=== PATIENT | male | born 1955 | race Caucasian/White ===

== ENCOUNTER → 2020-10-12 | Outpatient (CLI) | payer OTHER ==
[~2020-10-12] MED LIST: INSU100V13 SQ; LOSA1TAB19 PO; METF500T16 PO; PRAV20TA2 PO; SITA100T PO
--- NOTE | 2020-10-12 11:51 | KCIC ---
Ultrasound of the right thigh without comparison for right thigh hematoma. TECHNIQUE AND FINDINGS: Real-time grayscale and color Doppler evaluation of the area of interest in the right thigh is performed. There is a 16.2 x 12.6 x 7.2 cm lobulated heterogeneous complex fluid collection throughout subcutaneous tissues in this region. No internal vascular flow. IMPRESSION: 1. 16.2 cm complex appearing heterogeneous lobulated fluid collection within the subcutaneous tissues. Primary differential diagnostic considerations include hematoma versus abscess. Electronically signed by: Freddy Morrow MD (10/12/2020 11:47 AM) [id number]
== END ==
LOC: KCIC US 08:37
PROVIDERS: ATTEND Family Medicine
DX: S70.11XA Contusion of right thigh, initial encounter (principal); X58.XXXA Exposure to other specified factors, initial encounter; Y93.89 Activity, other specified; Y92.89 Other specified places as the place of occurrence of the external cause; Y99.8 Other external cause status
CPT/HCPCS: 76881

== ENCOUNTER → 2022-02-13 | Outpatient (CLI) | payer OTHER ==
--- NOTE | 2022-02-13 13:23 | KCIC ---
EXAM: Left foot, 3 views. HISTORY: Second toe ulcer. COMPARISON: None. FINDINGS: 3 views left foot are obtained. There is widening of the second distal interphalangeal join t with small surrounding bone fragments and soft tissue swelling. There is lucency along the plantar base of the second distal phalanx likely due to destructive/erosive changes. There is first tarsal me tatarsal joint space narrowing, spurring and subchondral cyst formation. There is a moderate plantar spur. There is a large enthesophyte at the Achilles tendon insertion. There is dorsal forefoot soft t issue swelling. IMPRESSION: 1. Suspected osteomyelitis involving the second distal phalanx with associated second distal interpha langeal joint space widening likely due to septic arthritis. There are small surrounding bone fragmen ts and there is soft tissue swelling. 2. Moderate to severe first tarsometatarsal joint osteoarthritis, moderate plantar spur and large ent hesophyte at the Achilles tendon insertion. Electronically signed by: Romy Tomas MD (02/13/2022 1:20 PM) [id number]
== END ==
LOC: KCIC 11:13
PROVIDERS: ATTEND Family Medicine
DX: M19.072 Primary osteoarthritis, left ankle and foot (principal); M79.89 Other specified soft tissue disorders; M77.32 Calcaneal spur, left foot; M76.62 Achilles tendinitis, left leg; L97.522 Non-pressure chronic ulcer of other part of left foot with fat layer exposed
CPT/HCPCS: 73630

== ENCOUNTER 2022-02-19 12:13 | Inpatient (IN) | payer OTHER ==
[~2022-02-19] VITALS: Ht 175.3 cm; Wt 134.7 kg
[~2022-02-19 12:13] MED LIST changes: -EMPA1TAB PO
[2022-02-19 13:10] VITALS: BP 129/71
[2022-02-19] MEDS ORDERED: EMPA1TAB PO (13:36)
--- NOTE | 2022-02-19 14:08 | PDOC1 ---
History and Physical Date of Admission Date of Admission DATE: 02/19/22 TIME: 14:07 Identification/Chief Complaint Chief Complaint Left 2nd toe wound Source Source: Patient History of Present Illness History of Present Illness Mr Figueroa is a 66yo male with PMHx HTN, HLD, DM2 who comes to the hospital as a direct admission from podiatry clinic for failure of outpatient treatment of left leg/foot and 2nd toe cellulitis. He noted left second toe pain swelling and redness with some yellowish discharge and ulcer went to his primary care physician on 02/11/2022 and was started on cefuroxime. He had referral to podiatry and after being seen in the office noted ulcer with osteomyelitis on radiograph and failure to improve despite outpatient antibiotics. Seen bedside does have foul-smelling discharge from left second toe. Cultures were obtained in podiatry office. Given osteomyelitis findings he is being considered for amputation. Prior to admission his diabetes outpatient has been controlled well and his A1c improved from 7.3-7.2 this most recent visit in January 2022. 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 Past Medical History Cardiovascular: HTN, Hyperlipidemia Endocrine: Diabetes Past Surgical History Past Surgical History: Arthroscopy (Left knee 1971), Hernia Repair (1977) Family History Family History: Cancer (Prostate in father), High Cholestrol, Hypertension Social History Smoke: No ALCOHOL: heavy (10-20 drinks per week) Current Medications Current Medications Active Scripts Active Reported Glyxambi 25 mg-5 mg Tablet (Empagliflozin/Linagliptin) 1 Each Tablet 1 Each PO DAILY Pravastatin Sodium 20 Mg Tablet 20 Mg PO DAILY Losartan-Hctz 50-12.5 Mg Tab (Losartan/Hydrochlorothiazide) 1 Each Tablet 1 Tab PO BID Metformin Hcl 500 Mg Tablet 500 Mg PO BIDWMEALS Levemir (Insulin Detemir) 100 Unit/1 Ml Vial 1 SQ DAILY Allergies Allergies: Coded Allergies: No Known Drug Allergies (Unverified , 05/14/16) ROS General: YES: Fatigue, Malaise; No: Chills, Night Sweats, Appetite, Other PSYCHOLOGICAL ROS: No: Anxiety, Behavioral Disorder, Concentration difficultie, Decreased libido, Depression, Disorientation, Hallucinations, Hostility, Irritablity, Memory difficulties, Mood Swings, Obsessive thoughts, Physical abuse, Sexual abuse, Sleep disturbances, Suicidal ideation, Other Eyes: No Blurry vision, No Decreased vision, No Double vision, No Dry eyes, No Excessive tearing, No Eye Pain, No Itchy Eyes, No Loss of vision, No Photophobia, No Scotomata, No Uses contacts, No Uses glasses, No Other HEENT: No: Heacaches, Visual Changes, Hearing change, Nasal congestion, Nasal discharge, Oral lesions, Sinus pain, Sore Throat, Epistaxis, Sneezing, Snoring, Tinnitus, Vertigo, Vocal changes, Other ALLERGY AND IMMUNOLOGY: No: Hives, Insect Bite Sensitivity, Itchy/Watery Eyes, Nasal Congestion, Post Nasal Drip, Seasonal Allergies, Other Hematological and Lymphatic: No: Bleeding Problems, Blood Clots, Blood Transfusions, Brusing, Night Sweats, Pallor, Swollen Lymph Nodes, Other ENDOCRINE: No: Breast Changes, Galactorrhea, Hair Pattern Changes, Hot Flashes, Malaise/lethargy, Mood Swings, Palpitations, Polydipsia/polyuria, Skin Changes, Temperature Intolerance, Unexpected Weight Changes, Other Breast: No New/Changing Breast Lumps, No Nipple changes, No Nipple discharge, No Other Respiratory: No: Cough, Hemoptysis, Orthopnea, Pleuritic Pain, Shortness of breath, SOB with excertion, Sputum Changes, Stridor, Tachypnea, Wheezing, Other Cardiovascular: No Chest Pain, No Palpitations, No Orthopnea, No Paroxysmal Noc. Dyspnea, No Edema, No Lt Headedness, No Other Gastrointestinal: No Nausea, No Vomiting, No Abdominal Pain, No Diarrhea, No Constipation, No Melena, No Hematochezia, No Other Genitourinary: No Dysuria, No Frequency, No Incontinence, No Hematuria, No Retention, No Discharge, No Urgency, No Pain, No Flank Pain, No Other, No , No , No , No , No , No , No Musculoskeletal: No Gait Disturbance, No Joint Pain, No Joint Stiffness, No Joint Swelling, No Muscle Pain, No Muscular Weakness, No Pain In:, No Swelling In:, No Other Neurological: Yes Gait Disturbance; No Behavorial Changes, No Bowel/Bladder ControlChng, No Confusion, No Dizziness, No Headaches, No Impaired Coord/balance, No Memory Loss, No Numbness/Tingling, No Seizures, No Speech Problems, No Tremors, No Visual Changes, No Weakness, No Other Skin: Yes Skin Lesion Changes; No Dry Skin, No Eczema, No Hair Changes, No Lumps, No Mole Changes, No Mottling, No Nail Changes, No Pruritus, No Rash, No Other, No Acne Physical Exam General: Alert, Oriented X3, Cooperative, No acute distress HEENT: Atraumatic, PERRLA, EOMI, Mucous membr. moist/pink Lungs: Clear to auscultation, Normal air movement Heart: S1S2, RRR, no thrills, no rubs, no gallops, no murmurs Abdomen: Normal bowel sounds, Soft, No tenderness, No hepatosplenomegaly, No masses Rectal Exam: not examined Extremities: No clubbing, No cyanosis, Normal pulses, Other (left 2nd toe large, red, hot, plantar ulcer) Skin: Other (Ulcer on 2nd toe left foot) Neuro: Normal gait, Normal speech, Strength at 5/5 X4 ext, Normal tone, Sensation intact, Cranial nerves 3-12 NL, Reflexes 2+ Psych/Mental Status: Mental status NL, Mood NL Vitals Vitals Vital Signs Date Time Temp Pulse Resp B/P (MAP) Pulse Ox O2 Delivery O2 Flow Rate FiO2 02/19/22 13:50 Room Air 02/19/22 13:10 98.3 90 18 129/71 (90) 93 98.3 Images Images Left xray: FINDINGS: 3 views left foot are obtained. There is widening of the second distal interphalangeal joint with small surrounding bone fragments and soft tissue swelling. There is lucency along the plantar base of the second distal phalanx likely due to destructive/erosive changes. There is first tarsal metatarsal joint space narrowing, spurring and subchondral cyst formation. There is a moderate plantar spur. There is a large enthesophyte at the Achilles tendon insertion. There is dorsal forefoot soft tissue swelling. IMPRESSION: 1. Suspected osteomyelitis involving the second distal phalanx with associated second distal interphalangeal joint space widening likely due to septic arthritis. There are small surrounding bone fragments and there is soft tissue swelling. 2. Moderate to severe first tarsometatarsal joint osteoarthritis, moderate plantar spur and large enthesophyte at the Achilles tendon insertion. VTE Prophylaxis Ordered VTE Prophylaxis Devices: No VTE Pharmacological Prophylaxi: Yes Assessment/Plan Assessment/Plan A/P: Left 2nd toe cellulitis - failed outpatient antibiotic therapy. Will give vancomycin, zosyn x1, blood cultures, CMP, CBC, Sed rate, CRP. Consult ID and podiatry Left 2nd toe ulcer - with likely osteomyelitis on radiograph. Will obtain vascular studies HTN - monitor BP, hold HCTZ pending labs HLD - statin DM2 - hold metformin, sliding scale and basal insulin while inpatient FEN - ADA diet, NPO after midnight PPX - ambulatory, post-op lovenox FULL CODE Dispo - inpatient for above Justifications for Admission Other Justification SYED DIETZ MD Feb 19, 2022 14:08
[2022-02-19] MEDS ORDERED: VANCOMYCIN PER PHARMACY MC PRN (14:15)
[2022-02-19] MEDS ORDERED: IV NORMAL SALINE 1000ML BAG 1,000 ML IV SCH (14:15)
[2022-02-19] MEDS ORDERED: IV DEXTROSE 5% 250 ML BAG. IV PRN (14:15)
[2022-02-19] MEDS ORDERED: ONDANSETRON PF 4 MG/2 ML VIAL. IVP PRN (14:15)
[2022-02-19] MEDS ORDERED: ACETAMINOPHEN 325 MG TABLET. PO PRN (14:15)
[2022-02-19] MEDS ORDERED: PIP/TAZO PER PHARMACY MC PRN (14:15)
[2022-02-19] MEDS ORDERED: hydrALAZINE 20 MG/ML VIAL. IVP PRN (14:15)
[2022-02-19] MEDS ORDERED: DEXTROSE 50% 25 GM / 50ML DISP.SYRIN. IV PRN (14:15)
[2022-02-19 15:00] VITALS: BP 130/64
[2022-02-19] MEDS ORDERED: VANCOMYCIN 2 GM in IV NORMAL SALINE 500ML BAG 500 ML IV ONE (15:00)
[2022-02-19] MEDS: PIPERACILLIN/TAZOBACTAM 3.375 GM in IV NORMAL SALINE 50ML 50 ML IV SCH ×2 (16:13→21:00)
[2022-02-19] MEDS: INSULIN LISPRO 300 UNITS/3 ML VIAL. SQ SCH (16:48)
[2022-02-19 17:02] LABS: ALBUMIN 3.2 g/dL (3.4-5.0); ALBUMIN/GLOBULIN RATIO 0.6 (1.0-1.7); C-REACTIVE PROTEIN 46.9 mg/L (0-3.3); CALCIUM 9.1 mg/dL (8.5-10.1); CREATININE 1.3 mg/dL (0.7-1.3); GFR 55.4; POTASSIUM 4.2 mmol/L (3.5-5.1); TOTAL BILIRUBIN 0.8 mg/dL (0.2-1.0); TOTAL PROTEIN 8.2 g/dL (6.4-8.2)
[2022-02-19 17:06] LABS: BASO % 1 % (0-3); EOS # 0.2 x10^3/uL (0.0-0.7); EOS % 3 % (0-3); HEMATOCRIT 37.2 % (39.0-53.0); HEMOGLOBIN 12.8 g/dL (13.0-17.5); LYMPH % 13 % (24-48); MEAN CORPUSCULAR HEMOGLOBIN 34 pg (25-35); MEAN CORPUSCULAR HGB CONC 34 g/dL (31-37); MEAN CORPUSCULAR VOLUME 98 fL (79-100); MONO # 0.5 x10^3/uL (0.0-1.1); MONO % 7 % (0-9); NEUT # 5.8 x10^3/uL (1.8-7.7); NEUT % 77 % (31-73); PLATELET COUNT 246 x10^3/uL (140-400); RED BLOOD COUNT 3.79 x10^6/uL (4.30-5.70); RED CELL DISTRIBUTION WIDTH 11.9 % (11.5-14.5); WHITE BLOOD COUNT 7.6 x10^3/uL (4.0-11.0)
--- NOTE | 2022-02-19 17:06 | RAD ---
US LEFT LOWER EXTREMITY ARTERIAL DUPLEX EVAL Indication: Reason: Osteomyelitis, decreased pulses, pain Comparison: None. Procedure: Real-time grayscale, color flow Doppler, and Doppler spectral waveform analysis of the art erial system of the lower extremity is performed. Findings: Left lower extremity: Triphasic waveforms throughout the left lower extremity. Mildly elevated veloci ty within the left common femoral artery measures 155 cm/s. Mild atheromatous plaque. No occlusion. IMPRESSION: 1. Mildly elevated velocity within the left common femoral artery, may indicate 30-49 percent stenos is. 2. Mild atheromatous plaque. Electronically signed by: Hussain Soliman DO (02/19/2022 5:04 PM) [id number]
--- NOTE | 2022-02-19 18:25 | NUR ---
Pharmacy Vancomycin Dosing Note S:Consulted to monitor and dose vancomycin started 02/19/22. O:FRANCOIS RICHARD is a 66 year old M with Osteomyelitis . Height: 5 feet, 9 inches Weight: 135.0 kg [place] Body Weight: 70.70 Adjusted Body Weight: 96.42 Dosing Weight: Actual Other Antibiotics: ZOSYN LABS: Last BUN: 24 Last Creatinine: 1.3 Creatinine Clearance: 77 mL/min Last WBC: 7.6 Last Procalcitonin: Tmax (past 24 hours): Microbiology: I/O: Drug Levels: Last level: on at Last dose given at Vancomycin Dosing: Loading Dose: 2000 mg x1 Dosing Weight: Actual Target Trough: 15-20 A: Based on: HT, WT AND RENAL FXN P: 1. Begin Vancomycin 2000 mg IV q18h 2. Follow up Trough level on 02/21/22 at 2230 3. Pharmacy will continue to monitor, follow and adjust therapy as needed. CHRISTY BARBOZA, [facility]MERLY [facility], 02/19/22 [id number]
[2022-02-19 19:40] VITALS: BP 128/58
[2022-02-19] MEDS: SENNOSIDES/DOCUSATE 8.6/50MG TABLET. PO SCH (21:00)
[2022-02-19] MEDS: ATORVASTATIN CALCIUM 10 MG TABLET. PO SCH (21:01)
[2022-02-19] MEDS: INSULIN GLARGINE SYRINGE. SQ SCH (21:08)
[2022-02-19 23:27] VITALS: BP 120/57
[2022-02-20] VITALS (12 sets, daily range): BP systolic 108–146; BP diastolic 54–75
[2022-02-20] MEDS: PIPERACILLIN/TAZOBACTAM 3.375 GM in IV NORMAL SALINE 50ML 50 ML IV SCH ×4 (00:27→16:35)
[2022-02-20] MEDS ORDERED: fentaNYL PF VIAL 100 MCG/2 ML VIAL IVP PRN ×2 (06:00)
[2022-02-20] MEDS ORDERED: MORPHINE SULFATE 2 MG/ML INJ. IVP PRN (06:00)
[2022-02-20] MEDS ORDERED: HYDROmorphone 2 MG/ML INJ. IVP PRN (06:00)
[2022-02-20] MEDS ORDERED: IV RINGERS,LACTATED 1000ML 1,000 ML IV SCH (06:00)
[2022-02-20] MEDS ORDERED: PROCHLORPERAZINE 10 MG/2 ML VIAL. IVP PRN (06:00)
[2022-02-20 06:28] LABS: CREATININE 1.2 mg/dL (0.7-1.3); GFR 60.8; POTASSIUM 4.1 mmol/L (3.5-5.1)
[2022-02-20] MEDS: INSULIN LISPRO 300 UNITS/3 ML VIAL. SQ SCH ×3 (07:10→16:41)
[2022-02-20] MEDS: SENNOSIDES/DOCUSATE 8.6/50MG TABLET. PO SCH ×2 (07:10→21:15)
[2022-02-20] MEDS ORDERED: DEXAMETHASONE SOD PHOS 4 MG/ML VIAL ONE (08:04)
[2022-02-20] MEDS ORDERED: LIDOCAINE 1% PF 5 ML VIAL. ONE (08:04)
[2022-02-20] MEDS ORDERED: PROPOFOL 10 MG/ML (20ML) VIAL. IV ONE (08:04)
[2022-02-20] MEDS ORDERED: ONDANSETRON PF 4 MG/2 ML VIAL. ONE (08:04)
[2022-02-20] MEDS ORDERED: fentaNYL PF VIAL 100 MCG/2 ML VIAL ONE (08:58)
[2022-02-20] MEDS: ASCORBIC ACID 500 MG TABLET PO SCH (09:22)
[2022-02-20] MEDS: MULTIVITAMIN with MINERAL TABLET. PO SCH (09:22)
[2022-02-20] MEDS ORDERED: FAMOTIDINE 20 MG/2 ML VIAL IVP ONE (09:30)
[2022-02-20] MEDS ORDERED: BUPIVACAINE MPF 0.25% 30 ML VIAL. ONE (09:34)
[2022-02-20] MEDS ORDERED: GLYCOPYRROLATE 1 MG/5 ML VIAL. ONE (09:57)
--- NOTE | 2022-02-20 10:14 | NUR ---
SW following. Discussed with RN, pt from home with family, room air, NPO, rapid COVID-19 negative. ID, Vascular and wound care following. Pt having surgery this morning. RN advised no SW needs at this time. SW will continue to follow.
--- NOTE | 2022-02-20 10:21 | PDOC ---
[employer] PROGRESS NOTE Date of Service DOS: DATE: 02/20/22 TIME: 10:17 Chief Complaint Chief Complaint Assessment/Plan A/P: Left 2nd toe cellulitis - failed outpatient antibiotic therapy. Will give vancomycin, zosyn x1, blood cultures, CMP, CBC, Sed rate, CRP. Consult ID and podiatry Left 2nd toe ulcer - with likely osteomyelitis on radiograph. Will obtain vascular studies HTN - monitor BP, hold HCTZ pending labs HLD - statin DM2 - hold metformin, sliding scale and basal insulin while inpatient Peripheral vascular disease with duplex showing left [employer] increased velocities FEN - ADA diet, NPO after midnight PPX - ambulatory, post-op lovenox FULL CODE Dispo - inpatient for above History of Present Illness History of Present Illness 66yo male with PMHx HTN, HLD, DM2 who comes to the hospital as a direct admission from podiatry clinic for failure of outpatient treatment of left leg/foot and 2nd toe cellulitis. He noted left second toe pain swelling and redness with some yellowish discharge and ulcer went to his primary care physician on 02/11/2022 and was started on cefuroxime. He had referral to podiatry and after being seen in the office noted ulcer with osteomyelitis on radiograph and failure to improve despite outpatient antibiotics. Seen bedside does have foul-smelling discharge from left second toe. Cultures were obtained in podiatry office. Given osteomyelitis findings he is being considered for amputation. Prior to admission his diabetes outpatient has been controlled well and his A1c improved from 7.3-7.2 this most recent visit in January 2022. 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 02/20/2022 No acute events overnight. Patient seen examined bedside. On-call to the OR for surgery. Follow-up Vitals/I&O Vitals/I&O: Vital Signs Date Time Temp Pulse Resp B/P (MAP) Pulse Ox O2 Delivery O2 Flow Rate FiO2 02/20/22 09:15 97.2 70 17 137/67 98 Room Air 97.2 I & O 02/19/22 02/19/22 02/20/22 15:00 23:00 07:00 Intake Total 240 ml Balance 240 ml Physical Exam General: Alert, Oriented X3, Cooperative, No acute distress Abdomen: Normal bowel sounds, Soft, No tenderness, No hepatosplenomegaly, No masses Extremities: No clubbing, No cyanosis, Normal pulses, Other (left 2nd toe large, red, hot, plantar ulcer) Skin: Other (Ulcer on 2nd toe left foot) Labs Labs: Laboratory Tests Test 02/19/22 14:05 02/19/22 16:10 02/19/22 16:45 02/19/22 20:59 SARS-CoV-2 Antigen (Rapid) Negative (NEGATIVE) White Blood Count 7.6 x10^3/uL (4.0-11.0) Red Blood Count 3.79 x10^6/uL (4.30-5.70) Hemoglobin 12.8 g/dL (13.0-17.5) Hematocrit 37.2 % (39.0-53.0) Mean Corpuscular Volume 98 fL (79-100) Mean Corpuscular Hemoglobin 34 pg (25-35) Mean Corpuscular Hemoglobin Concent 34 g/dL (31-37) Red Cell Distribution Width 11.9 % (11.5-14.5) Platelet Count 246 x10^3/uL (140-400) Neutrophils (%) (Auto) 77 % (31-73) Lymphocytes (%) (Auto) 13 % (24-48) Monocytes (%) (Auto) 7 % (0-9) Eosinophils (%) (Auto) 3 % (0-3) Basophils (%) (Auto) 1 % (0-3) Neutrophils # (Auto) 5.8 x10^3/uL (1.8-7.7) Lymphocytes # (Auto) 1.0 x10^3/uL (1.0-4.8) Monocytes # (Auto) 0.5 x10^3/uL (0.0-1.1) Eosinophils # (Auto) 0.2 x10^3/uL (0.0-0.7) Basophils # (Auto) 0.0 x10^3/uL (0.0-0.2) Erythrocyte Sedimentation Rate 103 (0-15) Sodium Level 136 mmol/L (136-145) Potassium Level 4.2 mmol/L (3.5-5.1) Chloride Level 100 mmol/L (98-107) Carbon Dioxide Level 26 mmol/L (21-32) Anion Gap 10 (6-14) Blood Urea Nitrogen 24 mg/dL (8-26) Creatinine 1.3 mg/dL (0.7-1.3) Estimated GFR (Cockcroft-Gault) 55.4 BUN/Creatinine Ratio 18 (6-20) Glucose Level 172 mg/dL (70-99) Calcium Level 9.1 mg/dL (8.5-10.1) Total Bilirubin 0.8 mg/dL (0.2-1.0) Aspartate Amino Transf (AST/SGOT) 59 U/L (15-37) Alanine Aminotransferase (ALT/SGPT) 54 U/L (16-63) Alkaline Phosphatase 76 U/L (46-116) C-Reactive Protein, Quantitative 46.9 mg/L (0-3.3) Total Protein 8.2 g/dL (6.4-8.2) Albumin 3.2 g/dL (3.4-5.0) Albumin/Globulin Ratio 0.6 (1.0-1.7) Glucose (Fingerstick) 161 mg/dL (70-99) 142 mg/dL (70-99) Test 02/20/22 05:50 02/20/22 07:04 Sodium Level 137 mmol/L (136-145) Potassium Level 4.1 mmol/L (3.5-5.1) Chloride Level 102 mmol/L (98-107) Carbon Dioxide Level 27 mmol/L (21-32) Anion Gap 8 (6-14) Blood Urea Nitrogen 21 mg/dL (8-26) Creatinine 1.2 mg/dL (0.7-1.3) Estimated GFR (Cockcroft-Gault) 60.8 Glucose Level 128 mg/dL (70-99) Calcium Level 9.0 mg/dL (8.5-10.1) Glucose (Fingerstick) 141 mg/dL (70-99) Comment Review of Relevant I have reviewed the following items deisi (where applicable) has been applied. Medications: Current Medications Medications (Trade) Dose Ordered Sig/Gamal Route PRN Reason Start Time Stop Time Status Last Admin Dose Admin Atorvastatin Calcium (Lipitor) 5 mg QHS PO 02/19/22 21:00 02/19/22 21:01 Vancomycin HCl (Vanco Per Pharmacy) 1 each PRN DAILY PRN MC SEE COMMENTS 02/19/22 14:15 02/19/22 18:24 Vancomycin HCl 2 gm/Sodium Chloride 500 ml @ 250 mls/hr 1X ONCE IV 02/19/22 15:00 02/19/22 16:59 DC 02/19/22 17:26 Piperacillin Sod/ Tazobactam Sod 3.375 gm/Sodium Chloride 50 ml @ 100 mls/hr Q6HRS IV 02/19/22 14:30 02/20/22 06:01 Sodium Chloride 1,000 ml @ 100 mls/hr Q10H IV 02/19/22 14:15 02/20/22 00:14 DC 02/19/22 16:09 Senna/Docusate Sodium (Senna Plus) 1 tab BID PO 02/19/22 21:00 02/19/22 21:00 Ringer's Solution 1,000 ml @ 30 mls/hr Q24H IV 02/20/22 06:00 02/20/22 17:59 02/20/22 09:34 Insulin Glargine (Lantus Syringe) 25 unit QHS SQ 02/19/22 21:00 02/19/22 21:08 Famotidine (Pepcid Vial) 20 mg 1X ONCE IVP 02/20/22 09:30 02/20/22 09:31 DC 02/20/22 09:33 Justifications for Admission Other Justification Failure of outpatient antibiotics ADELIA MCLEOD MD Feb 20, 2022 10:21
--- NOTE | 2022-02-20 10:23 | PDOC4 ---
OPERATIVE NOTE Date: Date: Feb 20, 2022 Pre-Op Diagnosis: Type 2 diabetes, peripheral neuropathy, PAD Significant cellulitis to the second digit with underlying osteomyelitis possible forefoot deep tissue abscess Post-Op Diagnosis: Same as above Procedure Performed: Left second MTPJ disarticulation, forefoot exploration/I&D Surgeon: Nick Chauhan DPM Anesthesia Type: General Blood Loss: 5 cc Specimans Obtained: Left second toe for osteomyelitis rule out Deep tissue culture pre-and post- washout to the second MTPJ Findings: Significant purulence and osteolytic changes were noted at the DIPJ of the second digit. Although there was a significant cellulitic changes both at the lateral aspect of the hallux and medial aspect of the third digit and the dorsal second MTPJ, there is no significant sinus tracking, purulence, tendon tracking surrounding the second MTPJ. The skin flaps were perfused adequately. Complications: None Operative Note: Patient was brought into the operating room and placed on the operating table in a supine position. A timeout was performed to confirm patient's identity, location of surgery and procedure. After induction of general anesthesia, a pneumatic high ankle tourniquet was placed with pressure set 250 mmHg. The left lower extremity was then scrubbed, prepped and draped in the usual sterile manner. The left lower extremity was elevated for gravity exsanguination and the tourniquet was inflated to 250 mmHg. Then the attention was directed to the left second digit. A full-thickness, modified fishmouth incision was carried out to the level of the second MTPJ with a long dorsal arm to further explore the distal metatarsal shafts between the second and third. The incision was carried deep to the level of the periosteum. immediately, we noted purulent and osteolytic changes confined to the second digit. Proximal to the second MTPJ, there was no purulence, sinus tracking or tendon tracking to the Dorsal, plantar aspect of second MTPJ or to the lateral hallux compartment or medial third digit compartment. The erythematous changes at the hallux, third digit and proximal second metatarsal head were blanchable without any fluctuant changes. Deep tissue culture was collected at this time for anaerobes, aerobes and sensitivity. The second digit was resected out at the level of MTPJ. The gross specimen was sent for pathology for osteomyelitis rule out. The surgical site was irrigated with copious saline solution. Afterwards, wound site inspection was negative for purulence or necrotic tissue changes. The tissue appeared granular with healthy pinpoint bleeding. Then a repeat deep tissue culture was collected for anaerobes, aerobes and sensitivity. The surgical site was left open and packed loosely with Betadine soaked gauze both to the dorsal and plantar aspect of second MTPJ. Postoperative anesthesia consisted of 10 cc 0.25% Marcaine plain was infiltrated to the surgical site for pain control. The surgical foot was dressed with 4 x 4 gauze, soft roll and Jesse bandage with minimal compression. Patient tolerated procedure anesthesia well with vital signs stable and neurovascular status intact. Patient was then transferred to PACU for continued recovery. Pending surgical foot x-ray 3 view in PACU. Dispo: Leave the dressing clean, dry and intact. I will perform dressing change tomorrow in the afternoon. Continue with broad-spectrum IV antibiotics while waiting for the skin to demarcate. I did discuss with patient and family that if the skin envelope does not survive we may have to convert to a TMA for the second stage procedure. If the skin on the third and first digits normalize, I will consider limb salvage with either allograft or autograft skin coverage. Strict nonweightbearing to the surgical foot. NICK CHAUHAN DPM Feb 20, 2022 10:23
[2022-02-20] MEDS ORDERED: VANCOMYCIN 2 GM in IV NORMAL SALINE 500ML BAG 500 ML IV SCH (11:00)
--- NOTE | 2022-02-20 11:54 | RAD ---
XR FOOT_LEFT 3 VIEWS History: Reason: POST OP / Spl. Instructions: / History: Technique: 3 views left foot Comparison: February 13, 2022 Findings: Overlying structures degraded evaluation. Interval second digit amputation. There is adjacent soft ti ssue swelling. No acute fracture. Chronic fifth metatarsal fracture. Moderate midfoot DJD. Mild ankle DJD. Plantar calcaneal spur. Impression: 1. Interval second digit amputation. Electronically signed by: Hussain Soliman DO (02/20/2022 11:52 AM) [id number]
[2022-02-20] MEDS: DAPTOmycin (GENERIC) IVPB 560 MG in IV NORMAL SALINE 50ML 50 ML IV SCH (14:08)
[2022-02-20] MEDS: ATORVASTATIN CALCIUM 10 MG TABLET. PO SCH (21:15)
[2022-02-20] MEDS: LACTOBACILLUS RHAMNOSUS GG 1 CAPSULE. PO SCH (21:15)
[2022-02-20] MEDS: INSULIN GLARGINE SYRINGE. SQ SCH (21:22)
--- NOTE | 2022-02-20 21:33 | CONS ---
DATE OF CONSULTATION: 02/20/2022 REQUESTING PHYSICIAN: Dr. Chavez. REASON FOR CONSULTATION: Left second toe osteomyelitis and septic joint. HISTORY OF PRESENT ILLNESS: This is a 66-year-old gentleman with history of hypertension, obesity, who had developed callus onto the second toe that he noticed about 2 weeks or so ago. The patient had x-ray done, which showed osteomyelitis. The patient was seen by Dr. Uribe and partial amputation of the left second toe done today. The patient had mild erythema of the proximal part of the toe into the foot. Denies any fever. Denies any nausea, vomiting, diarrhea, chest pain, shortness of breath, abdominal pain, urinary symptoms or bowel symptoms. PAST MEDICAL HISTORY: Positive for hypertension, diabetes, obesity, hyperlipidemia, sleep apnea. SOCIAL HISTORY: Negative for smoking. Alcohol use, almost every day. No drug use. ALLERGIES: No known drug allergies. CURRENT MEDICATIONS: The patient is on vancomycin and Zosyn. REVIEW OF SYSTEMS: As in HPI. All other systems reviewed are negative. PHYSICAL EXAMINATION: GENERAL: Alert, oriented gentleman, not in distress. VITAL SIGNS: Stable, afebrile. HEENT: NAD. NECK: Supple, no JVP, no lymphadenopathy. LUNGS: Clear. HEART: S1, S2, regular. ABDOMEN: Soft, nontender, no organomegaly. EXTREMITIES: No edema or cyanosis. Post-surgical dressing on the left foot not opened. NEUROLOGIC: The patient is alert, awake, and appropriate. No focal neurologic deficit. LABORATORY DATA: White count is normal. Sed rate was 103. BUN and creatinine is normal. X-ray from few days earlier reviewed, shows osteomyelitis as well as distal interphalangeal joint infection. Ultrasound of lower extremity was not showing any significant arterial disease. IMPRESSION: 1. Left second toe distal phalanx osteomyelitis. 2. Left second toe distal interphalangeal joint infection. 3. Diabetes. 4. Hypertension. 5. Hyperlipidemia. RECOMMENDATIONS: Would continue Zosyn, change vancomycin to daptomycin, supportive care and we will continue to follow. Thank you very much, Dr. Chavez, for giving me opportunity to participate in this patient's care. MARY ELLEN/DEMETRIA EDWARDS: Daniel TID: [id number]
[2022-02-21 03:32] VITALS: BP 124/66
[2022-02-21 05:41] LABS: CALCIUM 8.7 mg/dL (8.5-10.1); CREATININE 1.2 mg/dL (0.7-1.3); GFR 60.8; POTASSIUM 4.2 mmol/L (3.5-5.1)
[2022-02-21] MEDS: PIPERACILLIN/TAZOBACTAM 3.375 GM in IV NORMAL SALINE 50ML 50 ML IV SCH ×4 (05:58→17:49)
[2022-02-21 07:00] VITALS: BP 120/52
[2022-02-21] MEDS: INSULIN LISPRO 300 UNITS/3 ML VIAL. SQ SCH ×3 (08:00→17:00)
[2022-02-21] MEDS: MULTIVITAMIN with MINERAL TABLET. PO SCH (09:59)
[2022-02-21] MEDS: ASCORBIC ACID 500 MG TABLET PO SCH (09:59)
[2022-02-21] MEDS: SENNOSIDES/DOCUSATE 8.6/50MG TABLET. PO SCH ×2 (09:59→20:19)
[2022-02-21] MEDS: LACTOBACILLUS RHAMNOSUS GG 1 CAPSULE. PO SCH ×2 (09:59→20:19)
--- NOTE | 2022-02-21 10:38 | PDOC ---
[employer] PROGRESS NOTE Date of Service DOS: DATE: 02/21/22 TIME: 10:36 Chief Complaint Chief Complaint Assessment/Plan A/P: Left 2nd toe cellulitis - failed outpatient antibiotic therapy. 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 Will obtain vascular studies HTN - monitor BP, hold HCTZ pending labs HLD - statin DM2 - hold metformin, sliding scale and basal insulin while inpatient Peripheral vascular disease with duplex showing left [employer] increased velocities FEN - ADA diet, NPO after midnight PPX - ambulatory, post-op lovenox FULL CODE Dispo - inpatient for above History of Present Illness History of Present Illness 66yo male with PMHx HTN, HLD, DM2 who comes to the hospital as a direct admission from podiatry clinic for failure of outpatient treatment of left leg/foot and 2nd toe cellulitis. He noted left second toe pain swelling and redness with some yellowish discharge and ulcer went to his primary care physician on 02/11/2022 and was started on cefuroxime. He had referral to podiatry and after being seen in the office noted ulcer with osteomyelitis on radiograph and failure to improve despite outpatient antibiotics. Seen bedside does have foul-smelling discharge from left second toe. Cultures were obtained in podiatry office. Given osteomyelitis findings he is being considered for amputation. Prior to admission his diabetes outpatient has been controlled well and his A1c improved from 7.3-7.2 this most recent visit in January 2022. 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 02/20/2022 No acute events overnight. Patient seen examined bedside. On-call to the OR for surgery. Follow-up 02/21/2022 No acute events overnight. Patient seen examined bedside. AF and VSS. Pain is well controlled. Dr. Uribe will be back again this afternoon to reevaluate surgical wound to see if second trip to the OR if needed. Patient's chart, labs, images were reviewed and discussed with RN Vitals/I&O Vitals/I&O: Vital Signs Date Time Temp Pulse Resp B/P (MAP) Pulse Ox O2 Delivery O2 Flow Rate FiO2 02/21/22 07:00 65 18 120/52 (74) 97 Room Air 02/21/22 03:32 97.8 97.8 02/20/22 10:31 10.0 I & O 02/20/22 02/20/22 02/21/22 15:00 23:00 07:00 Intake Total 850 ml 120 ml 600 ml Output Total 10 ml Balance 840 ml 120 ml 600 ml Physical Exam General: Alert, Oriented X3, Cooperative, No acute distress Abdomen: Normal bowel sounds, Soft, No tenderness, No hepatosplenomegaly, No masses Extremities: No clubbing, No cyanosis, Normal pulses, Other (left 2nd toe large, red, hot, plantar ulcer) Skin: Other (Ulcer on 2nd toe left foot) Labs Labs: Laboratory Tests Test 02/20/22 10:39 02/20/22 16:14 02/20/22 20:41 02/21/22 04:50 Glucose (Fingerstick) 143 mg/dL (70-99) 202 mg/dL (70-99) 196 mg/dL (70-99) Sodium Level 137 mmol/L (136-145) Potassium Level 4.2 mmol/L (3.5-5.1) Chloride Level 101 mmol/L (98-107) Carbon Dioxide Level 24 mmol/L (21-32) Anion Gap 12 (6-14) Blood Urea Nitrogen 20 mg/dL (8-26) Creatinine 1.2 mg/dL (0.7-1.3) Estimated GFR (Cockcroft-Gault) 60.8 Glucose Level 126 mg/dL (70-99) Calcium Level 8.7 mg/dL (8.5-10.1) Creatine Kinase 50 U/L (39-308) Test 02/21/22 06:57 Glucose (Fingerstick) 120 mg/dL (70-99) Comment Review of Relevant I have reviewed the following items deisi (where applicable) has been applied. Medications: Current Medications Medications (Trade) Dose Ordered Sig/Gamal Route PRN Reason Start Time Stop Time Status Last Admin Dose Admin Vancomycin HCl 2 gm/Sodium Chloride 500 ml @ 250 mls/hr Q18H IV 02/20/22 11:00 02/20/22 12:42 DC 02/20/22 10:47 Daptomycin 560 mg/ Sodium Chloride 50 ml @ 100 mls/hr Q24H IV 02/20/22 14:00 02/20/22 14:08 Lactobacillus Rhamnosus (Culturelle) 1 cap BID PO 02/20/22 21:00 02/21/22 09:59 Justifications for Admission Other Justification Failure of outpatient antibiotics ADELIA MCLEOD MD Feb 21, 2022 10:38
[2022-02-21 11:00] VITALS: BP 133/59
--- NOTE | 2022-02-21 13:07 | PDOC ---
Infectious Disease Note Subjective Subjective pt is feeling good ROS ROS no n/v/d/sob Vital Sign Vital Signs Vital Signs Date Time Temp Pulse Resp B/P (MAP) Pulse Ox O2 Delivery O2 Flow Rate FiO2 02/21/22 11:00 97.9 68 18 133/59 (83) 96 Room Air 97.9 02/20/22 10:31 10.0 Physical Exam PHYSICAL EXAM GENERAL: Alert, oriented gentleman, not in distress. VITAL SIGNS: Stable, afebrile. HEENT: NAD. NECK: Supple, no JVP, no lymphadenopathy. LUNGS: Clear. HEART: S1, S2, regular. ABDOMEN: Soft, nontender, no organomegaly. EXTREMITIES: No edema or cyanosis. Post-surgical dressing on the left foot not opened. NEUROLOGIC: The patient is alert, awake, and appropriate. No focal neurologic deficit. Labs Lab Laboratory Tests Test 02/20/22 16:14 02/20/22 20:41 02/21/22 04:50 02/21/22 06:57 Glucose (Fingerstick) 202 mg/dL (70-99) 196 mg/dL (70-99) 120 mg/dL (70-99) Sodium Level 137 mmol/L (136-145) Potassium Level 4.2 mmol/L (3.5-5.1) Chloride Level 101 mmol/L (98-107) Carbon Dioxide Level 24 mmol/L (21-32) Anion Gap 12 (6-14) Blood Urea Nitrogen 20 mg/dL (8-26) Creatinine 1.2 mg/dL (0.7-1.3) Estimated GFR (Cockcroft-Gault) 60.8 Glucose Level 126 mg/dL (70-99) Calcium Level 8.7 mg/dL (8.5-10.1) Creatine Kinase 50 U/L (39-308) Test 02/21/22 11:31 Glucose (Fingerstick) 150 mg/dL (70-99) Micro Microbiology 02/19/22 Blood Culture - Preliminary, Resulted NO GROWTH AFTER 1 DAY Objective Assessment IMPRESSION: 1. Left second toe distal phalanx osteomyelitis. s/p partial amputation 2. Left second toe distal interphalangeal joint infection. 3. Diabetes. 4. Hypertension. 5. Hyperlipidemia. Plan Plan of Care cont antibiotics cont supportive care XOCHITL CABALLERO MD Feb 21, 2022 13:07
[2022-02-21 15:03] VITALS: BP 126/60
[2022-02-21] MEDS: DAPTOmycin (GENERIC) IVPB 560 MG in IV NORMAL SALINE 50ML 50 ML IV SCH (15:19)
--- NOTE | 2022-02-21 17:48 | PDOC2 ---
CONSULT Date of Consult Date of Consult DATE: 02/21/22 TIME: 17:37 Reason for Consult Reason for Consult: Left second digit diabetic ulcer, osteomyelitis Identification/Chief Complaint Chief Complaint Red, swollen left second digit Source Source: Patient History of Present Illness Reason for Visit: Patient with a history of diabetes, peripheral neuropathy, peripheral arterial disease, s/p [DOS 02/20] left second MTPJ disarticulation, forefoot incision and drainage in the setting of left second diabetic foot ulcer, underlying osteomyelitis. At bedside, patient denies pain and has been minimally heel touchdown weightbearing to left lower extremity. He denies any constitutional symptoms. He is currently on daptomycin and Zosyn for empiric antibiotic therapy. The surgical foot dressing has been kept clean, dry and intact. Outpatient left second digit swab culture [02/19] grew MRSA, streptococci, Prevotella, Trueperella. Blood culture has been negative. Labs were insignificant for leukocytosis. Past Medical History Cardiovascular: HTN, Hyperlipidemia Endocrine: Diabetes Past Surgical History Past Surgical History: Arthroscopy (Left knee 1971), Hernia Repair (1977) Family History Family History: Cancer (Prostate in father), High Cholestrol, Hypertension Social History No ALCOHOL: heavy (10-20 drinks per week) Current Medications Current Medications Current Medications Acetaminophen (Tylenol) 650 mg PRN Q6HRS PRN PO MILD PAIN / TEMP > 100.3'F; Start 02/19/22 at 14:15 Ondansetron HCl (Zofran) 4 mg PRN Q4HRS PRN IVP NAUSEA/VOMITING; Start 02/19/22 at 14:15 Hydralazine HCl (Apresoline Inj) 10 mg PRN Q4HRS PRN IVP ELEVATED BP, SEE COMMENTS; Start 02/19/22 at 14:15 Atorvastatin Calcium (Lipitor) 5 mg QHS PO Last administered on 02/20/22at 21: 15; Start 02/19/22 at 21:00 Insulin Human Lispro (HumaLOG) 0-9 UNITS TIDWMEALS SQ Last administered on 02/20/22at 16:41; Start 02/19/22 at 17:00 Dextrose (Dextrose 50%-Water Syringe) 12.5 gm PRN Q15MIN PRN IV SEE COMMENTS; Start 02/19/22 at 14:15 Dextrose (Iv Dextrose 5%) 250 ml PRN Q15MIN PRN IV SEE COMMENTS; Start 02/19/22 at 14:15 Vancomycin HCl (Vanco Per Pharmacy) 1 each PRN DAILY PRN MC SEE COMMENTS Last administered on 02/19/22at 18:24; Start 02/19/22 at 14:15; Stop 02/20/22 at 16:13; Status DC Vancomycin HCl 2 gm/Sodium Chloride 500 ml @ 250 mls/hr 1X ONCE IV Last administered on 02/19/22at 17:26; Start 02/19/22 at 15:00; Stop 02/19/22 at 16:59; Status DC Piperacillin Sod/ Tazobactam Sod 3.375 gm/Sodium Chloride 50 ml @ 100 mls/hr Q6HRS IV Last administered on 02/21/22at 11:36; Start 02/19/22 at 14:30 Piperacillin Sod/ Tazobactam Sod (Zosyn Per Pharmacy) 1 each PRN DAILY PRN MC SEE COMMENTS; Start 02/19/22 at 14:15 Sodium Chloride 1,000 ml @ 100 mls/hr Q10H IV Last administered on 02/19/22at 16:09; Start 02/19/22 at 14:15; Stop 02/20/22 at 00:14; Status DC Senna/Docusate Sodium (Senna Plus) 1 tab BID PO Last administered on 02/21/22at 09:59; Start 02/19/22 at 21:00 Fentanyl Citrate (Fentanyl 2ml Vial) 25 mcg PRN Q5MIN PRN IVP MILD PAIN 1-3; Start 02/20/22 at 06:00; Stop 02/20/22 at 16:09; Status DC Fentanyl Citrate (Fentanyl 2ml Vial) 50 mcg PRN Q5MIN PRN IVP MODERATE PAIN 4- 6; Start 02/20/22 at 06:00; Stop 02/20/22 at 16:09; Status DC Morphine Sulfate (Morphine Sulfate) 1 mg PRN Q10MIN PRN IVP SEVERE PAIN 7-10; Start 02/20/22 at 06:00; Stop 02/20/22 at 16:12; Status DC Ringer's Solution 1,000 ml @ 30 mls/hr Q24H IV Last administered on 02/20/22at 09:34; Start 02/20/22 at 06:00; Stop 02/20/22 at 17:59; Status DC Hydromorphone HCl (Dilaudid) 0.5 mg PRN Q10MIN PRN IVP SEVERE PAIN 7-10, 2nd CHOICE; Start 02/20/22 at 06:00; Stop 02/20/22 at 16:12; Status DC Prochlorperazine Edisylate (Compazine) 5 mg PACU PRN PRN IVP NAUSEA, MRX1; Start 02/20/22 at 06:00; Stop 02/20/22 at 16:12; Status DC Insulin Glargine (Lantus Syringe) 25 unit QHS SQ Last administered on 02/20/22at 21:22; Start 02/19/22 at 21:00 Vancomycin HCl (Vancomycin Trough Level) 1 each 1X ONCE MC ; Start 02/21/22 at 22:30; Stop 02/20/22 at 16:13; Status DC Vancomycin HCl 2 gm/Sodium Chloride 500 ml @ 250 mls/hr Q18H IV Last administered on 02/20/22at 10:47; Start 02/20/22 at 11:00; Stop 02/20/22 at 12 :42; Status DC Propofol (Diprivan) 200 mg STK-MED ONCE IV ; Start 02/20/22 at 08:04; Stop 02/20/22 at 08:04; Status DC Lidocaine HCl (Xylocaine-Mpf 1% 5ml Vial) 5 ml STK-MED ONCE .ROUTE ; Start 02/20/22 at 08:04; Stop 02/20/22 at 08:04; Status DC Ondansetron HCl (Zofran) 4 mg STK-MED ONCE .ROUTE ; Start 02/20/22 at 08:04; Stop 02/20/22 at 08:04; Status DC Dexamethasone Sodium Phosphate (Decadron) 4 mg STK-MED ONCE .ROUTE ; Start 02/20/22 at 08:04; Stop 02/20/22 at 08:04; Status DC Fentanyl Citrate (Fentanyl 2ml Vial) 100 mcg STK-MED ONCE .ROUTE ; Start 02/20/22 at 08:58; Stop 02/20/22 at 08:58; Status DC Multivitamins (Thera M Plus) 1 tab DAILY PO Last administered on 02/21/22at 09:59; Start 02/20/22 at 10:00 Ascorbic Acid (Vitamin C) 500 mg DAILY PO Last administered on 02/21/22at 09:59; Start 02/20/22 at 10:00 Famotidine (Pepcid Vial) 20 mg 1X ONCE IVP Last administered on 02/20/22at 09:33; Start 02/20/22 at 09:30; Stop 02/20/22 at 09:31; Status DC Bupivacaine HCl (Sensorcaine Mpf 0.25%) 30 ml STK-MED ONCE .ROUTE Last administered on 02/20/22at 10:42; Start 02/20/22 at 09:34; Stop 02/20/22 at 09:34; Status DC Glycopyrrolate (Robinul) 1 mg STK-MED ONCE .ROUTE ; Start 02/20/22 at 09:57; Stop 02/20/22 at 09:57; Status DC Daptomycin 560 mg/ Sodium Chloride 50 ml @ 100 mls/hr Q24H IV Last administered on 02/21/22at 15:19; Start 02/20/22 at 14:00 Lactobacillus Rhamnosus (Culturelle) 1 cap BID PO Last administered on 02/21/22at 09:59; Start 02/20/22 at 21:00 Heparin Sodium (Porcine) (Heparin Sodium) 5,000 unit Q8HRS SQ ; Start 02/21/22 at 14:00 Active Scripts Active Reported Glyxambi 25 mg-5 mg Tablet (Empagliflozin/Linagliptin) 1 Each Tablet 1 Each PO DAILY Pravastatin Sodium 20 Mg Tablet 20 Mg PO DAILY Losartan-Hctz 50-12.5 Mg Tab (Losartan/Hydrochlorothiazide) 1 Each Tablet 1 Tab PO BID Metformin Hcl 500 Mg Tablet 500 Mg PO BIDWMEALS Levemir (Insulin Detemir) 100 Unit/1 Ml Vial 1 SQ DAILY Allergies Allergies: Coded Allergies: No Known Drug Allergies (Unverified , 05/14/16) ROS Review of System CONSTITUTIONAL: No fever. No chills. No dizziness. No weakness. CARDIOVASCULAR: No chest pain. No palpitations. No lower extremity edema. RESPIRATORY: No shortness of breath, cough, pain with respiration. No hemoptysis. No dyspnea. GASTROINTESTINAL: Normal appetite. No nausea, vomiting, diarrhea. GENITOURINARY: No frequency, urgency, nocturia. No hematuria or dysuria. MUSCULOSKELETAL: No arthralgias or myalgias. INTEGUMENTARY: Refer to HPI NEUROLOGIC: No numbness or tingling of the extremities. No weakness. PSYCHIATRIC: No confusion. ENDOCRINE: No fatigue. No weakness. HEMATOLOGICAL: No bleeding. No petechiae. No bruising. ALLERGIES: No asthma. No urticaria Physical Exam Physical Exam General: Pleasant without apparent distress, AOx3 Left lower extremity focused Dermatology: -Upon dressing removal, s/p left second MTPJ disarticulation. The wound bed is granular without any purulent discharge. There is moderate undermining created surgically to decompress the soft tissue compartments proximal to the second MTPJ, the medial aspect of the third MTPJ and lateral aspect of the hallux. The dorsal second MTPJ erythema is slightly receding. -There is no fluctuance, active drainage or progressive erythema to the left foot Vascular: -DP/PT palpable -Foot is warm to touch with CFT less than 3 seconds x 5 -Erythematous blanchable without necrotic, violaceous skin changes Neurology: -Light touch sensation diminished to the level of distal leg MSK: -[-] TTP at the surgical site near the second MTPJ -No TTP at the plantar mid arch -Able to move digits x4 -Muscle strength 5 out of 5 across ankle joint -Calf is soft and nontender Vitals VITALS Vital Signs Date Time Temp Pulse Resp B/P (MAP) Pulse Ox O2 Delivery O2 Flow Rate FiO2 02/21/22 15:03 97.6 76 18 126/60 (82) 94 Room Air 97.6 02/20/22 10:31 10.0 Labs Labs Laboratory Tests Test 02/19/22 20:59 02/20/22 05:50 02/20/22 07:04 02/20/22 10:39 Glucose (Fingerstick) 142 mg/dL (70-99) 141 mg/dL (70-99) 143 mg/dL (70-99) Sodium Level 137 mmol/L (136-145) Potassium Level 4.1 mmol/L (3.5-5.1) Chloride Level 102 mmol/L (98-107) Carbon Dioxide Level 27 mmol/L (21-32) Anion Gap 8 (6-14) Blood Urea Nitrogen 21 mg/dL (8-26) Creatinine 1.2 mg/dL (0.7-1.3) Estimated GFR (Cockcroft-Gault) 60.8 Glucose Level 128 mg/dL (70-99) Calcium Level 9.0 mg/dL (8.5-10.1) Test 02/20/22 16:14 02/20/22 20:41 02/21/22 04:50 02/21/22 06:57 Glucose (Fingerstick) 202 mg/dL (70-99) 196 mg/dL (70-99) 120 mg/dL (70-99) Sodium Level 137 mmol/L (136-145) Potassium Level 4.2 mmol/L (3.5-5.1) Chloride Level 101 mmol/L (98-107) Carbon Dioxide Level 24 mmol/L (21-32) Anion Gap 12 (6-14) Blood Urea Nitrogen 20 mg/dL (8-26) Creatinine 1.2 mg/dL (0.7-1.3) Estimated GFR (Cockcroft-Gault) 60.8 Glucose Level 126 mg/dL (70-99) Calcium Level 8.7 mg/dL (8.5-10.1) Creatine Kinase 50 U/L (39-308) Test 02/21/22 11:31 02/21/22 16:48 Glucose (Fingerstick) 150 mg/dL (70-99) 169 mg/dL (70-99) Laboratory Tests Test 02/20/22 20:41 02/21/22 04:50 02/21/22 06:57 02/21/22 11:31 Glucose (Fingerstick) 196 mg/dL (70-99) 120 mg/dL (70-99) 150 mg/dL (70-99) Sodium Level 137 mmol/L (136-145) Potassium Level 4.2 mmol/L (3.5-5.1) Chloride Level 101 mmol/L (98-107) Carbon Dioxide Level 24 mmol/L (21-32) Anion Gap 12 (6-14) Blood Urea Nitrogen 20 mg/dL (8-26) Creatinine 1.2 mg/dL (0.7-1.3) Estimated GFR (Cockcroft-Gault) 60.8 Glucose Level 126 mg/dL (70-99) Calcium Level 8.7 mg/dL (8.5-10.1) Creatine Kinase 50 U/L (39-308) Test 02/21/22 16:48 Glucose (Fingerstick) 169 mg/dL (70-99) Assessment/Plan Assessment/Plan Type 2 diabetes complicated with peripheral neuropathy S/p [02/20] left second MTPJ disarticulation in the setting of osteomyelitis and diabetic ulcer -Dressing was changed at bedside. The wound bed was packed with Betadine solution soaked Kerlix, wet to dry gauze, Kerlix and Jesse under minimal com pression. Keep it clean, dry and intact without any dressing change -Daily surveillance lab: CBC, BMP -Antibiotics: Currently on daptomycin and Zosyn, please de-escalate based on culture/pathology report - Wound cx [02/19]: grew MRSA, streptococci, Prevotella, Trueperella - Wound cx [02/20]: pending - Pathology [02/20]: Pending - BCX [02/19]: No growth to date -Weightbearing restriction: Minimal heel touchdown weightbearing to left lower extremity while protected in the surgical shoe -Physical therapy: Eval and treat following the weightbearing restriction as above -Encouraged compliance with incentive spirometry Dispo: Patient exhibited adequate arterial inflow both intraoperatively and clinically. No arterial re-vascularization is indicated. Clinically, the erythema is receding but the skin envelope has not yet completely declared. Continue with conservative dressing change as above, performed by me; empiric broad-spectrum antibiotics while awaiting culture and pathology result finalization. I will plan for repeat incision and drainage, delayed primary closure versus proximal amputation on Friday [02/25]. I will continue to follow as patient remains inhouse. NICK CHAUHAN DPM Feb 21, 2022 17:48
[2022-02-21] MEDS: HEPARIN for SUB-Q USE 5,000 UNIT/ML VIAL. SQ SCH ×2 (17:53→20:22)
[2022-02-21 19:00] VITALS: BP 126/65
[2022-02-21] MEDS: ATORVASTATIN CALCIUM 10 MG TABLET. PO SCH (20:19)
[2022-02-21] MEDS: INSULIN GLARGINE SYRINGE. SQ SCH (20:22)
[2022-02-21 23:21] VITALS: BP 124/66
[2022-02-22] MEDS: PIPERACILLIN/TAZOBACTAM 3.375 GM in IV NORMAL SALINE 50ML 50 ML IV SCH ×4 (00:02→23:47)
[2022-02-22 03:18] VITALS: BP 145/79
--- NOTE | 2022-02-22 06:30 | NUR ---
IP: Pt is mrsa + in L toe wound and is to be in contact precautions.
[2022-02-22] MEDS: HEPARIN for SUB-Q USE 5,000 UNIT/ML VIAL. SQ SCH ×3 (06:32→22:30)
[2022-02-22 07:00] VITALS: BP 135/68
[2022-02-22 07:42] LABS: CALCIUM 8.7 mg/dL (8.5-10.1); CREATININE 1.2 mg/dL (0.7-1.3); GFR 60.8; POTASSIUM 4.2 mmol/L (3.5-5.1)
[2022-02-22] MEDS: INSULIN LISPRO 300 UNITS/3 ML VIAL. SQ SCH ×3 (08:37→17:43)
[2022-02-22] MEDS: MULTIVITAMIN with MINERAL TABLET. PO SCH (09:04)
[2022-02-22] MEDS: LACTOBACILLUS RHAMNOSUS GG 1 CAPSULE. PO SCH ×2 (09:04→21:26)
[2022-02-22] MEDS: ASCORBIC ACID 500 MG TABLET PO SCH (09:04)
[2022-02-22] MEDS: SENNOSIDES/DOCUSATE 8.6/50MG TABLET. PO SCH ×2 (09:04→21:26)
--- NOTE | 2022-02-22 10:08 | NUR ---
SW following. Chart reviewed, pt from home with family, room air, ada diet, COVID-19 negative. Pt having wound vac placed today, surgery on Friday for toe amputation. No SW needs at this time. SW will continue to follow.
[2022-02-22 11:00] VITALS: BP 119/60
--- NOTE | 2022-02-22 12:52 | PDOC ---
Infectious Disease Note Subjective Subjective pt is feeling good ROS ROS No nausea vomiting diarrhea Vital Sign Vital Signs Vital Signs Date Time Temp Pulse Resp B/P (MAP) Pulse Ox O2 Delivery O2 Flow Rate FiO2 02/22/22 07:00 98.4 66 18 135/68 (90) 96 Room Air 98.4 Physical Exam PHYSICAL EXAM GENERAL: Alert, oriented gentleman, not in distress. VITAL SIGNS: Stable, afebrile. HEENT: NAD. NECK: Supple, no JVP, no lymphadenopathy. LUNGS: Clear. HEART: S1, S2, regular. ABDOMEN: Soft, nontender, no organomegaly. EXTREMITIES: No edema or cyanosis. Toe amputation site seen NEUROLOGIC: The patient is alert, awake, and appropriate. No focal neurologic deficit. Labs Lab Laboratory Tests Test 02/21/22 16:48 02/22/22 06:30 02/22/22 07:11 Glucose (Fingerstick) 169 mg/dL (70-99) 113 mg/dL (70-99) Sodium Level 139 mmol/L (136-145) Potassium Level 4.2 mmol/L (3.5-5.1) Chloride Level 104 mmol/L (98-107) Carbon Dioxide Level 25 mmol/L (21-32) Anion Gap 10 (6-14) Blood Urea Nitrogen 20 mg/dL (8-26) Creatinine 1.2 mg/dL (0.7-1.3) Estimated GFR (Cockcroft-Gault) 60.8 Glucose Level 114 mg/dL (70-99) Calcium Level 8.7 mg/dL (8.5-10.1) Micro Microbiology 02/19/22 Blood Culture - Preliminary, Resulted NO GROWTH AFTER 1 DAY Objective Assessment IMPRESSION: 1. Left second toe distal phalanx osteomyelitis. s/p amputation 2. Left second toe distal interphalangeal joint infection. 3. Diabetes. 4. Hypertension. 5. Hyperlipidemia. Plan Plan of Care cont antibiotics cont supportive care Wound VAC XOCHITL CABALLERO MD Feb 22, 2022 12:52
[2022-02-22] MEDS: DAPTOmycin (GENERIC) IVPB 560 MG in IV NORMAL SALINE 50ML 50 ML IV SCH (14:00)
--- NOTE | 2022-02-22 14:58 | PDOC ---
PROGRESS NOTES Date of Service DATE: 02/22/22 TIME: 14:57 Subjective Subjective Patient was seen resting in bed comfortably, denies any overnight events, constitutional symptoms. The dressing has been kept clean, dry intact. Patient is tolerating IV antibiotics well. Objective Objective Vital Signs Date Time Temp Pulse Resp B/P (MAP) Pulse Ox O2 Delivery O2 Flow Rate FiO2 02/22/22 11:00 98.1 78 16 119/60 (79) 94 Room Air 98.1 02/22/22 08:00 10.0 Intake and Output 02/22/22 07:00 Intake Total 1590 ml Output Total 1 ml Balance 1589 ml Intake Oral 1390 ml IV Total 200 ml Output Stool Total 1 ml # Voids 3 Physical Exam Physical Exam General: Pleasant without apparent distress, AOx3 Left lower extremity focused Dermatology: -Upon dressing removal, s/p left second MTPJ disarticulation. The wound bed is granular without any purulent discharge. There is moderate undermining created surgically to decompress the soft tissue compartments proximal to the second MTPJ, the medial aspect of the third MTPJ and lateral aspect of the hallux. The dorsal second MTPJ erythema is blanchable. 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 Keep it clean, dry and intact without any dressing change. Please page me if the seal leaks over the weekend. -Daily surveillance lab: CBC, BMP -Antibiotics: Currently on daptomycin and Zosyn, please de-escalate based on culture/pathology report - Wound cx [02/19]: grew MRSA, streptococci, Prevotella, Trueperella - Wound cx [02/20]: pending - Pathology [02/20]: Pending - BCX [02/19]: No growth to date -Weightbearing restriction: Minimal heel touchdown weightbearing to left lower extremity while protected in the surgical shoe -Physical therapy: Eval and treat following the weightbearing restriction as above -Encouraged compliance with incentive spirometry Dispo: Patient exhibited adequate arterial inflow both intraoperatively and clinically. No arterial re-vascularization is indicated. I will plan for repeat incision and drainage, delayed primary closure versus proximal amputation on Friday [02/25]. I will continue to follow as patient remains inhouse. N.p.o. after midnight on Friday Comment Review of Relevant I have reviewed the following items deisi (where applicable) has been applied. Labs Laboratory Tests Test 02/20/22 16:14 02/20/22 20:41 02/21/22 04:50 02/21/22 06:57 Glucose (Fingerstick) 202 mg/dL (70-99) 196 mg/dL (70-99) 120 mg/dL (70-99) Sodium Level 137 mmol/L (136-145) Potassium Level 4.2 mmol/L (3.5-5.1) Chloride Level 101 mmol/L (98-107) Carbon Dioxide Level 24 mmol/L (21-32) Anion Gap 12 (6-14) Blood Urea Nitrogen 20 mg/dL (8-26) Creatinine 1.2 mg/dL (0.7-1.3) Estimated GFR (Cockcroft-Gault) 60.8 Glucose Level 126 mg/dL (70-99) Calcium Level 8.7 mg/dL (8.5-10.1) Creatine Kinase 50 U/L (39-308) Test 02/21/22 11:31 02/21/22 16:48 02/22/22 06:30 02/22/22 07:11 Glucose (Fingerstick) 150 mg/dL (70-99) 169 mg/dL (70-99) 113 mg/dL (70-99) Sodium Level 139 mmol/L (136-145) Potassium Level 4.2 mmol/L (3.5-5.1) Chloride Level 104 mmol/L (98-107) Carbon Dioxide Level 25 mmol/L (21-32) Anion Gap 10 (6-14) Blood Urea Nitrogen 20 mg/dL (8-26) Creatinine 1.2 mg/dL (0.7-1.3) Estimated GFR (Cockcroft-Gault) 60.8 Glucose Level 114 mg/dL (70-99) Calcium Level 8.7 mg/dL (8.5-10.1) Laboratory Tests Test 02/21/22 16:48 02/22/22 06:30 02/22/22 07:11 Glucose (Fingerstick) 169 mg/dL (70-99) 113 mg/dL (70-99) Sodium Level 139 mmol/L (136-145) Potassium Level 4.2 mmol/L (3.5-5.1) Chloride Level 104 mmol/L (98-107) Carbon Dioxide Level 25 mmol/L (21-32) Anion Gap 10 (6-14) Blood Urea Nitrogen 20 mg/dL (8-26) Creatinine 1.2 mg/dL (0.7-1.3) Estimated GFR (Cockcroft-Gault) 60.8 Glucose Level 114 mg/dL (70-99) Calcium Level 8.7 mg/dL (8.5-10.1) Microbiology 02/19/22 Blood Culture - Preliminary, Resulted NO GROWTH AFTER 2 DAYS Medications Current Medications Acetaminophen (Tylenol) 650 mg PRN Q6HRS PRN PO MILD PAIN / TEMP > 100.3'F; Start 02/19/22 at 14:15 Ondansetron HCl (Zofran) 4 mg PRN Q4HRS PRN IVP NAUSEA/VOMITING; Start 02/19/22 at 14:15 Hydralazine HCl (Apresoline Inj) 10 mg PRN Q4HRS PRN IVP ELEVATED BP, SEE COMMENTS; Start 02/19/22 at 14:15 Atorvastatin Calcium (Lipitor) 5 mg QHS PO Last administered on 02/21/22at 20:19; Start 02/19/22 at 21:00 Insulin Human Lispro (HumaLOG) 0-9 UNITS TIDWMEALS SQ Last administered on 02/20/22at 16:41; Start 02/19/22 at 17:00 Dextrose (Dextrose 50%-Water Syringe) 12.5 gm PRN Q15MIN PRN IV SEE COMMENTS; Start 02/19/22 at 14:15 Dextrose (Iv Dextrose 5%) 250 ml PRN Q15MIN PRN IV SEE COMMENTS; Start 02/19/22 at 14:15 Vancomycin HCl (Vanco Per Pharmacy) 1 each PRN DAILY PRN MC SEE COMMENTS Last administered on 02/19/22at 18:24; Start 02/19/22 at 14:15; Stop 02/20/22 at 16:13; Status DC Vancomycin HCl 2 gm/Sodium Chloride 500 ml @ 250 mls/hr 1X ONCE IV Last administered on 02/19/22at 17:26; Start 02/19/22 at 15:00; Stop 02/19/22 at 16:59; Status DC Piperacillin Sod/ Tazobactam Sod 3.375 gm/Sodium Chloride 50 ml @ 100 mls/hr Q6HRS IV Last administered on 02/22/22at 06:26; Start 02/19/22 at 14:30 Piperacillin Sod/ Tazobactam Sod (Zosyn Per Pharmacy) 1 each PRN DAILY PRN MC SEE COMMENTS; Start 02/19/22 at 14:15 Sodium Chloride 1,000 ml @ 100 mls/hr Q10H IV Last administered on 02/19/22at 16:09; Start 02/19/22 at 14:15; Stop 02/20/22 at 00:14; Status DC Senna/Docusate Sodium (Senna Plus) 1 tab BID PO Last administered on 02/22/22at 09:04; Start 02/19/22 at 21:00 Fentanyl Citrate (Fentanyl 2ml Vial) 25 mcg PRN Q5MIN PRN IVP MILD PAIN 1-3; Start 02/20/22 at 06:00; Stop 02/20/22 at 16:09; Status DC Fentanyl Citrate (Fentanyl 2ml Vial) 50 mcg PRN Q5MIN PRN IVP MODERATE PAIN 4- 6; Start 02/20/22 at 06:00; Stop 02/20/22 at 16:09; Status DC Morphine Sulfate (Morphine Sulfate) 1 mg PRN Q10MIN PRN IVP SEVERE PAIN 7-10; Start 02/20/22 at 06:00; Stop 02/20/22 at 16:12; Status DC Ringer's Solution 1,000 ml @ 30 mls/hr Q24H IV Last administered on 02/20/22at 09:34; Start 02/20/22 at 06:00; Stop 02/20/22 at 17:59; Status DC Hydromorphone HCl (Dilaudid) 0.5 mg PRN Q10MIN PRN IVP SEVERE PAIN 7-10, 2nd CHOICE; Start 02/20/22 at 06:00; Stop 02/20/22 at 16:12; Status DC Prochlorperazine Edisylate (Compazine) 5 mg PACU PRN PRN IVP NAUSEA, MRX1; Start 02/20/22 at 06:00; Stop 02/20/22 at 16:12; Status DC Insulin Glargine (Lantus Syringe) 25 unit QHS SQ Last administered on 02/21/22at 20:22; Start 02/19/22 at 21:00 Vancomycin HCl (Vancomycin Trough Level) 1 each 1X ONCE MC ; Start 02/21/22 at 22:30; Stop 02/20/22 at 16:13; Status DC Vancomycin HCl 2 gm/Sodium Chloride 500 ml @ 250 mls/hr Q18H IV Last administered on 02/20/22at 10:47; Start 02/20/22 at 11:00; Stop 02/20/22 at 12:42; Status DC Propofol (Diprivan) 200 mg STK-MED ONCE IV ; Start 02/20/22 at 08:04; Stop 02/20/22 at 08:04; Status DC Lidocaine HCl (Xylocaine-Mpf 1% 5ml Vial) 5 ml STK-MED ONCE .ROUTE ; Start at 08:04; Stop 02/20/22 at 08:04; Status DC Ondansetron HCl (Zofran) 4 mg STK-MED ONCE .ROUTE ; Start 02/20/22 at 08:04; Stop 02/20/22 at 08:04; Status DC Dexamethasone Sodium Phosphate (Decadron) 4 mg STK-MED ONCE .ROUTE ; Start 02/20/22 at 08:04; Stop 02/20/22 at 08:04; Status DC Fentanyl Citrate (Fentanyl 2ml Vial) 100 mcg STK-MED ONCE .ROUTE ; Start 02/20/22 at 08:58; Stop 02/20/22 at 08:58; Status DC Multivitamins (Thera M Plus) 1 tab DAILY PO Last administered on 02/22/22at 09:04; Start 02/20/22 at 10:00 Ascorbic Acid (Vitamin C) 500 mg DAILY PO Last administered on 02/22/22at 09:04; Start 02/20/22 at 10:00 Famotidine (Pepcid Vial) 20 mg 1X ONCE IVP Last administered on 02/20/22at 09:33; Start 02/20/22 at 09:30; Stop 02/20/22 at 09:31; Status DC Bupivacaine HCl (Sensorcaine Mpf 0.25%) 30 ml STK-MED ONCE .ROUTE Last administered on 02/20/22at 10:42; Start 02/20/22 at 09:34; Stop 02/20/22 at 09:34; Status DC Glycopyrrolate (Robinul) 1 mg STK-MED ONCE .ROUTE ; Start 02/20/22 at 09:57; Stop 02/20/22 at 09:57; Status DC Daptomycin 560 mg/ Sodium Chloride 50 ml @ 100 mls/hr Q24H IV Last administered on 02/21/22at 15:19; Start 02/20/22 at 14:00 Lactobacillus Rhamnosus (Culturelle) 1 cap BID PO Last administered on 02/22/22at 09:04; Start 02/20/22 at 21:00 Heparin Sodium (Porcine) (Heparin Sodium) 5,000 unit Q8HRS SQ Last administered on 02/22/22at 06:32; Start 02/21/22 at 14:00 Fentanyl Citrate (Fentanyl 2ml Vial) 25 mcg PRN Q5MIN PRN IVP MILD PAIN 1-3; Start 02/25/22 at 06:00; Stop 02/26/22 at 05:59 Fentanyl Citrate (Fentanyl 2ml Vial) 50 mcg PRN Q5MIN PRN IVP MODERATE PAIN 4- 6; Start 02/25/22 at 06:00; Stop 02/26/22 at 05:59 Morphine Sulfate (Morphine Sulfate) 1 mg PRN Q10MIN PRN IVP SEVERE PAIN 7-10; Start 02/25/22 at 06:00; Stop 02/26/22 at 05:59 Ringer's Solution 1,000 ml @ 30 mls/hr Q24H IV ; Start 02/25/22 at 06:00; Stop 02/25/22 at 17:59 Hydromorphone HCl (Dilaudid) 0.5 mg PRN Q10MIN PRN IVP SEVERE PAIN 7-10, 2nd CHOICE; Start 02/25/22 at 06:00; Stop 02/26/22 at 05:59 Prochlorperazine Edisylate (Compazine) 5 mg PACU PRN PRN IVP NAUSEA, MRX1; Start 02/25/22 at 06:00; Stop 02/26/22 at 05:59 Active Scripts Active Reported Glyxambi 25 mg-5 mg Tablet (Empagliflozin/Linagliptin) 1 Each Tablet 1 Each PO DAILY Pravastatin Sodium 20 Mg Tablet 20 Mg PO DAILY Losartan-Hctz 50-12.5 Mg Tab (Losartan/Hydrochlorothiazide) 1 Each Tablet 1 Tab PO BID Metformin Hcl 500 Mg Tablet 500 Mg PO BIDWMEALS Levemir (Insulin Detemir) 100 Unit/1 Ml Vial 1 SQ DAILY Vitals/I & O Vital Sign - Last 24 Hours 02/21/22 02/21/22 02/21/22 02/21/22 15:03 19:00 20:00 23:21 Temp 97.6 97.9 98.3 97.6 97.9 98.3 Pulse 76 76 79 Resp 18 18 18 B/P (MAP) 126/60 (82) 126/65 (85) 124/66 (85) Pulse Ox 94 93 95 O2 Delivery Room Air Room Air Room Air Room Air 02/22/22 02/22/22 02/22/22 02/22/22 03:18 07:00 08:00 11:00 Temp 97.7 98.4 98.1 97.7 98.4 98.1 Pulse 79 66 78 Resp 18 18 16 B/P (MAP) 145/79 (101) 135/68 (90) 119/60 (79) Pulse Ox 95 96 94 O2 Delivery Room Air Room Air Room Air Room Air O2 Flow Rate 10.0 Intake and Output 02/21/22 02/21/22 02/22/22 15:00 23:00 07:00 Intake Total 290 ml 300 ml 1000 ml Output Total 1 ml Balance 290 ml 299 ml 1000 ml Justifications for Admission Other Justification Failure of outpatient antibiotics NICK CHAUHAN DPM Feb 22, 2022 14:58
[2022-02-22 15:00] VITALS: BP 122/69
--- NOTE | 2022-02-22 15:49 | NUR ---
Wound Care Wound Type/Assessment: Pt of Dr. Uribe. Rony Gerard consulted wound care for wound vac management to open amputation of L 2nd toe. Dr. Uribe at bedside for assessment, plans to leave NPWT on for the weekend to stimulate granulation tissue and return with pt to OR on Sunday 02/25 for possible further debridement and closure of amputation site. Wound cleansed, pictured and measured, Base is red and healthy with small amount of fresh blood observed. No structures observed in the wound base. Margins remain slightly swollen and red, without significant maceration. Periwound prepped with skin prep, one piece of black foam to wound depth, tracked to L lateral calf, and good seal achieved at 125 mmHg of continuous suction. Treatment Recommendations/Plan: Leave wound vac in place until removal or by request of Dr. Uribe. Page wound care if vac malfunctions over the weekend. Replace with wet to dry dressing if unable to resolve malfunctions within 2 hours of onset. Education provided: Pt educated regarding weight bearing status (heel touch only), requesting assistance with ambulation, vac alarms, and diabetes management for optimal healing. Offloading surface/device: Pt is independent with mobility Recommended Referrals/Tests: Defer to Dr. Uribe Discharge Recommendations for dressings: As directed by Dr. Uribe
--- NOTE | 2022-02-22 16:34 | PDOC ---
[facility] PROGRESS NOTE Date of Service DOS: DATE: 02/22/22 TIME: 16:32 Chief Complaint Chief Complaint Assessment/Plan A/P: Left 2nd toe cellulitis - failed outpatient antibiotic therapy. 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 He noted left second toe pain swelling and redness with some yellowish discharge and ulcer went to his primary care physician on 02/11/2022 and was started on cefuroxime. He had referral to podiatry and after being seen in the office noted ulcer with osteomyelitis on radiograph and failure to improve despite outpatient antibiotics. Seen bedside does have foul-smelling discharge from left second toe. Cultures were obtained in podiatry office. Given osteomyelitis findings he is being considered for amputation. Prior to admission his diabetes outpatient has been controlled well and his A1c improved from 7.3-7.2 this most recent visit in January 2022. 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 02/20/2022 No acute events overnight. Patient seen examined bedside. On-call to the OR for surgery. Follow-up 02/21/2022 No acute events overnight. Patient seen examined bedside. AF and VSS. Pain is well controlled. Dr. Uribe will be back again this afternoon to reevaluate surgical wound to see if second trip to the OR if needed. Patient's chart, labs, images were reviewed and discussed with RN 02/22/22 No acute events overnight. Pain well controlled. Ambulating without assistance. AF and VSS. Plan for second look in the OR with Dr Uribe. Patient's chart, labs, images were reviewed and discussed with RN Vitals/I&O Vitals/I&O: Vital Signs Date Time Temp Pulse Resp B/P (MAP) Pulse Ox O2 Delivery O2 Flow Rate FiO2 02/22/22 15:00 98.0 82 18 122/69 (86) 98 Room Air 98.0 02/22/22 08:00 10.0 I & O 02/21/22 02/21/22 02/22/22 14:59 22:59 06:59 Intake Total 290 ml 300 ml 1000 ml Output Total 1 ml Balance 290 ml 299 ml 1000 ml Physical Exam Physical Exam: GENERAL: Alert, oriented gentleman, not in distress. VITAL SIGNS: Stable, afebrile. HEENT: NAD. NECK: Supple, no JVP, no lymphadenopathy. LUNGS: Clear. HEART: S1, S2, regular. ABDOMEN: Soft, nontender, no organomegaly. EXTREMITIES: No edema or cyanosis. Toe amputation site seen NEUROLOGIC: The patient is alert, awake, and appropriate. No focal neurologic deficit. General: Alert, Oriented X3, Cooperative, No acute distress Abdomen: Normal bowel sounds, Soft, No tenderness, No hepatosplenomegaly, No masses Extremities: No clubbing, No cyanosis, Normal pulses, Other (left 2nd toe large, red, hot, plantar ulcer) Skin: Other (Ulcer on 2nd toe left foot) Labs Labs: Laboratory Tests Test 02/21/22 16:48 02/22/22 06:30 02/22/22 07:11 Glucose (Fingerstick) 169 mg/dL (70-99) 113 mg/dL (70-99) Sodium Level 139 mmol/L (136-145) Potassium Level 4.2 mmol/L (3.5-5.1) Chloride Level 104 mmol/L (98-107) Carbon Dioxide Level 25 mmol/L (21-32) Anion Gap 10 (6-14) Blood Urea Nitrogen 20 mg/dL (8-26) Creatinine 1.2 mg/dL (0.7-1.3) Estimated GFR (Cockcroft-Gault) 60.8 Glucose Level 114 mg/dL (70-99) Calcium Level 8.7 mg/dL (8.5-10.1) Comment Review of Relevant I have reviewed the following items deisi (where applicable) has been applied. Justifications for Admission Other Justification Failure of outpatient antibiotics ADELIA MCLEOD MD Feb 22, 2022 16:34
--- NOTE | 2022-02-22 17:08 | PATHOLOGY ---
[facility] Accession Number: [id number] . 01 Material submitted: . toe - LEFT 2ND TOE R/O OSTEOMYELITIS. Modifiers: left, second . 01 Clinical history: . 2ND TOE AMPUTATION . 02 Diagnosis: Left second toe amputation: - Extensive acute cellulitis of toe with acute osteomyelitis of middle and distal phalangeal bones. (JPM:[place]; 02/22/2022) MBR 02/22/2022 1542 Local . 02 Electronically signed: . Tyrone Jack MD, Pathologist NPI- [id number] . 01 Gross description: . The specimen is received in formalin, labeled "Sagar Figueroa, left second toe". Received is an amputated digit measuring 5.9 x 3.0 x 3.0 cm in greatest dimensions. The bone margin is smooth and concave in appearance, consistent with disarticulation. The bone and soft tissue margins are inked black. The nail is absent. The epidermal surface is pale young, smooth to yellow-young, flaky in appearance. A full-thickness longitudinal cross-section is submitted from proximal to distal aspects in cassettes A1 through A3. (CAA; 02/20/2022) QAC/QAC 02/20/2022 1558 Local . 02 Pathologist provided ICD-10: L03.032, M86.172 . 02 CPT . 267531 Specimen Comment: A courtesy copy of this report has been sent to [phone], [phone] Specimen Comment: [id number], Specimen Comment: Report sent to , DR DIETZ / DR TERESA Specimen Comment: A duplicate report has been generated due to demographic updates. Performed at: [id number] [facility] [address], [place], [place] [id number] MD Akira Castañeda MD Phone: [phone] Performed at: [address] [id number] MD Tyrone Jack MD Phone: [phone]
[2022-02-22 19:45] VITALS: BP 128/53
[2022-02-22] MEDS: ATORVASTATIN CALCIUM 10 MG TABLET. PO SCH (21:26)
[2022-02-22] MEDS: INSULIN GLARGINE SYRINGE. SQ SCH (21:31)
[2022-02-22 23:28] VITALS: BP 118/60
[2022-02-23 03:24] VITALS: BP 144/69
[2022-02-23] MEDS: PIPERACILLIN/TAZOBACTAM 3.375 GM in IV NORMAL SALINE 50ML 50 ML IV SCH ×4 (06:01→23:18)
[2022-02-23] MEDS: HEPARIN for SUB-Q USE 5,000 UNIT/ML VIAL. SQ SCH ×3 (06:09→21:21)
[2022-02-23 07:00] VITALS: BP 138/75
[2022-02-23 07:20] LABS: BASO % 1 % (0-3); EOS # 0.2 x10^3/uL (0.0-0.7); EOS % 4 % (0-3); HEMATOCRIT 38.1 % (39.0-53.0); HEMOGLOBIN 12.8 g/dL (13.0-17.5); LYMPH # 1.5 x10^3/uL (1.0-4.8); LYMPH % 27 % (24-48); MEAN CORPUSCULAR HEMOGLOBIN 34 pg (25-35); MEAN CORPUSCULAR HGB CONC 34 g/dL (31-37); MEAN CORPUSCULAR VOLUME 100 fL (79-100); MONO # 0.5 x10^3/uL (0.0-1.1); MONO % 9 % (0-9); NEUT # 3.4 x10^3/uL (1.8-7.7); NEUT % 60 % (31-73); PLATELET COUNT 238 x10^3/uL (140-400); RED BLOOD COUNT 3.81 x10^6/uL (4.30-5.70); RED CELL DISTRIBUTION WIDTH 12.3 % (11.5-14.5); WHITE BLOOD COUNT 5.6 x10^3/uL (4.0-11.0)
[2022-02-23] MEDS: INSULIN LISPRO 300 UNITS/3 ML VIAL. SQ SCH ×3 (08:01→17:47)
[2022-02-23] MEDS: LACTOBACILLUS RHAMNOSUS GG 1 CAPSULE. PO SCH ×2 (08:29→20:57)
[2022-02-23] MEDS: MULTIVITAMIN with MINERAL TABLET. PO SCH (08:29)
[2022-02-23] MEDS: ASCORBIC ACID 500 MG TABLET PO SCH (08:29)
[2022-02-23] MEDS: SENNOSIDES/DOCUSATE 8.6/50MG TABLET. PO SCH ×2 (08:29→20:57)
[2022-02-23 09:04] LABS: CALCIUM 8.8 mg/dL (8.5-10.1); CREATININE 1.2 mg/dL (0.7-1.3); GFR 60.8; MAGNESIUM 2.4 mg/dL (1.8-2.4); POTASSIUM 4.3 mmol/L (3.5-5.1)
[2022-02-23 11:00] VITALS: BP 137/72
--- NOTE | 2022-02-23 11:35 | PDOC ---
[facility] PROGRESS NOTE Date of Service DOS: DATE: 02/23/22 TIME: 11:34 Chief Complaint Chief Complaint Assessment/Plan A/P: Left 2nd toe cellulitis - failed outpatient antibiotic therapy. 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 He noted left second toe pain swelling and redness with some yellowish discharge and ulcer went to his primary care physician on 02/11/2022 and was started on cefuroxime. He had referral to podiatry and after being seen in the office noted ulcer with osteomyelitis on radiograph and failure to improve despite outpatient antibiotics. Seen bedside does have foul-smelling discharge from left second toe. Cultures were obtained in podiatry office. Given osteomyelitis findings he is being considered for amputation. Prior to admission his diabetes outpatient has been controlled well and his A1c improved from 7.3-7.2 this most recent visit in January 2022. 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 02/20/2022 No acute events overnight. Patient seen examined bedside. On-call to the OR for surgery. Follow-up 02/21/2022 No acute events overnight. Patient seen examined bedside. AF and VSS. Pain is well controlled. Dr. Uribe will be back again this afternoon to reevaluate surgical wound to see if second trip to the OR if needed. Patient's chart, labs, images were reviewed and discussed with RN 02/22/22 No acute events overnight. Pain well controlled. Ambulating without assistance. AF and VSS. Plan for second look in the OR with Dr Uribe. Patient's chart, labs, images were reviewed and discussed with RN 02/23/2022 No acute events overnight. Patient seen examined sitting on recliner. Pain is well controlled. AF and VSS. Moving well on his own. Plan for second look take back to the OR on Friday with Dr. Uribe. Patient's chart, labs, images were reviewed and discussed with RN Vitals/I&O Vitals/I&O: Vital Signs Date Time Temp Pulse Resp B/P (MAP) Pulse Ox O2 Delivery O2 Flow Rate FiO2 02/23/22 08:18 Room Air 10.0 02/23/22 07:00 97.3 71 18 138/75 (96) 96 97.3 I & O 02/22/22 02/22/22 02/23/22 15:00 23:00 07:00 Intake Total 480 ml Balance 480 ml Physical Exam Physical Exam: GENERAL: Alert, oriented gentleman, not in distress. VITAL SIGNS: Stable, afebrile. HEENT: NAD. NECK: Supple, no JVP, no lymphadenopathy. LUNGS: Clear. HEART: S1, S2, regular. ABDOMEN: Soft, nontender, no organomegaly. EXTREMITIES: No edema or cyanosis. Toe amputation site seen NEUROLOGIC: The patient is alert, awake, and appropriate. No focal neurologic deficit. General: Alert, Oriented X3, Cooperative, No acute distress Abdomen: Normal bowel sounds, Soft, No tenderness, No hepatosplenomegaly, No masses Extremities: No clubbing, No cyanosis, Normal pulses, Other (left 2nd toe large, red, hot, plantar ulcer) Skin: Other (Ulcer on 2nd toe left foot) Labs Labs: Laboratory Tests Test 02/22/22 17:28 02/22/22 21:04 02/23/22 06:50 02/23/22 07:58 Glucose (Fingerstick) 144 mg/dL (70-99) 197 mg/dL (70-99) 127 mg/dL (70-99) White Blood Count 5.6 x10^3/uL (4.0-11.0) Red Blood Count 3.81 x10^6/uL (4.30-5.70) Hemoglobin 12.8 g/dL (13.0-17.5) Hematocrit 38.1 % (39.0-53.0) Mean Corpuscular Volume 100 fL (79-100) Mean Corpuscular Hemoglobin 34 pg (25-35) Mean Corpuscular Hemoglobin Concent 34 g/dL (31-37) Red Cell Distribution Width 12.3 % (11.5-14.5) Platelet Count 238 x10^3/uL (140-400) Neutrophils (%) (Auto) 60 % (31-73) Lymphocytes (%) (Auto) 27 % (24-48) Monocytes (%) (Auto) 9 % (0-9) Eosinophils (%) (Auto) 4 % (0-3) Basophils (%) (Auto) 1 % (0-3) Neutrophils # (Auto) 3.4 x10^3/uL (1.8-7.7) Lymphocytes # (Auto) 1.5 x10^3/uL (1.0-4.8) Monocytes # (Auto) 0.5 x10^3/uL (0.0-1.1) Eosinophils # (Auto) 0.2 x10^3/uL (0.0-0.7) Basophils # (Auto) 0.0 x10^3/uL (0.0-0.2) Erythrocyte Sedimentation Rate 96 (0-15) Sodium Level 137 mmol/L (136-145) Potassium Level 4.3 mmol/L (3.5-5.1) Chloride Level 102 mmol/L (98-107) Carbon Dioxide Level 26 mmol/L (21-32) Anion Gap 9 (6-14) Blood Urea Nitrogen 17 mg/dL (8-26) Creatinine 1.2 mg/dL (0.7-1.3) Estimated GFR (Cockcroft-Gault) 60.8 Glucose Level 127 mg/dL (70-99) Calcium Level 8.8 mg/dL (8.5-10.1) Magnesium Level 2.4 mg/dL (1.8-2.4) C-Reactive Protein, Quantitative 23.5 mg/L (0-3.3) Comment Review of Relevant I have reviewed the following items deisi (where applicable) has been applied. Justifications for Admission Other Justification Failure of outpatient antibiotics ADELIA MCLEOD MD Feb 23, 2022 11:35
[2022-02-23] MEDS: DAPTOmycin (GENERIC) IVPB 560 MG in IV NORMAL SALINE 50ML 50 ML IV SCH (13:53)
[2022-02-23 15:00] VITALS: BP 144/70
[2022-02-23 19:00] VITALS: BP 149/76
[2022-02-23] MEDS: ATORVASTATIN CALCIUM 10 MG TABLET. PO SCH (20:57)
[2022-02-23] MEDS: INSULIN GLARGINE SYRINGE. SQ SCH (21:21)
[2022-02-23 23:00] VITALS: BP 156/71
[2022-02-23] MEDS ORDERED: NAPROXEN 500 MG TABLET PO ONE (23:00)
[2022-02-24 03:00] VITALS: BP 137/70
[2022-02-24] MEDS: PIPERACILLIN/TAZOBACTAM 3.375 GM in IV NORMAL SALINE 50ML 50 ML IV SCH ×3 (05:35→17:13)
[2022-02-24] MEDS: HEPARIN for SUB-Q USE 5,000 UNIT/ML VIAL. SQ SCH ×3 (05:36→21:13)
[2022-02-24 07:00] VITALS: BP 140/74
[2022-02-24] MEDS: INSULIN LISPRO 300 UNITS/3 ML VIAL. SQ SCH ×3 (08:00→17:00)
[2022-02-24] MEDS: ASCORBIC ACID 500 MG TABLET PO SCH (08:09)
[2022-02-24] MEDS: MULTIVITAMIN with MINERAL TABLET. PO SCH (08:09)
[2022-02-24] MEDS: LACTOBACILLUS RHAMNOSUS GG 1 CAPSULE. PO SCH ×2 (08:09→21:00)
[2022-02-24] MEDS: SENNOSIDES/DOCUSATE 8.6/50MG TABLET. PO SCH ×2 (08:09→21:00)
[2022-02-24 11:00] VITALS: BP 132/66
--- NOTE | 2022-02-24 11:36 | PDOC ---
Infectious Disease Note Subjective Subjective pt is feeling good ROS ROS no n/v/d/ Vital Sign Vital Signs Vital Signs Date Time Temp Pulse Resp B/P (MAP) Pulse Ox O2 Delivery O2 Flow Rate FiO2 02/24/22 11:00 98.0 72 18 132/66 (88) 98 Room Air 98.0 02/23/22 08:18 10.0 Physical Exam PHYSICAL EXAM GENERAL: Alert, oriented gentleman, not in distress. VITAL SIGNS: Stable, afebrile. HEENT: NAD. NECK: Supple, no JVP, no lymphadenopathy. LUNGS: Clear. HEART: S1, S2, regular. ABDOMEN: Soft, nontender, no organomegaly. EXTREMITIES: No edema or cyanosis. Toe amputation site seen NEUROLOGIC: The patient is alert, awake, and appropriate. No focal neurologic deficit. Labs Lab Laboratory Tests Test 02/23/22 11:47 02/23/22 16:44 02/23/22 20:18 02/24/22 07:35 Glucose (Fingerstick) 198 mg/dL (70-99) 260 mg/dL (70-99) 196 mg/dL (70-99) 123 mg/dL (70-99) Micro Microbiology 02/19/22 Blood Culture - Preliminary, Resulted NO GROWTH AFTER 1 DAY Objective Assessment IMPRESSION: 1. Left second toe distal phalanx osteomyelitis. s/p amputation 2. Left second toe distal interphalangeal joint infection. 3. Diabetes. 4. Hypertension. 5. Hyperlipidemia. Plan Plan of Care cont antibiotics cont supportive care Wound VAC XOCHITL CABALLERO MD Feb 24, 2022 11:36
[2022-02-24] MEDS: DAPTOmycin (GENERIC) IVPB 560 MG in IV NORMAL SALINE 50ML 50 ML IV SCH (12:50)
--- NOTE | 2022-02-24 13:29 | PDOC ---
[facility] PROGRESS NOTE Date of Service DOS: DATE: 02/24/22 TIME: 13:27 Chief Complaint Chief Complaint Left 2nd toe cellulitis - failed outpatient antibiotic therapy. 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 He noted left second toe pain swelling and redness with some yellowish discharge and ulcer went to his primary care physician on 02/11/2022 and was started on cefuroxime. He had referral to podiatry and after being seen in the office noted ulcer with osteomyelitis on radiograph and failure to improve despite outpatient antibiotics. Seen bedside does have foul-smelling discharge from left second toe. Cultures were obtained in podiatry office. Given osteomyelitis findings he is being considered for amputation. Prior to admission his diabetes outpatient has been controlled well and his A1c improved from 7.3-7.2 this most recent visit in Jan. 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 02/20/2022 No acute events overnight. Patient seen examined bedside. On-call to the OR for surgery. Follow-up 02/21/2022 No acute events overnight. Patient seen examined bedside. AF and VSS. Pain is well controlled. Dr. Uribe will be back again this afternoon to reevaluate surgical wound to see if second trip to the OR if needed. Patient's chart, labs, images were reviewed and discussed with RN 02/22/22 No acute events overnight. Pain well controlled. Ambulating without assistance. AF and VSS. Plan for second look in the OR with Dr Uribe. Patient's chart, labs, images were reviewed and discussed with RN 02/23/2022 No acute events overnight. Patient seen examined sitting on recliner. Pain is well controlled. AF and VSS. Moving well on his own. Plan for second look take back to the OR on Friday with Dr. Uribe. Patient's chart, labs, images were reviewed and discussed with RN 02/24, will adjust his insulin down, surg planned for tomorrow, diet hre reviewed, he had a glucose spike yesterdya, "friends" brought him a couple pieces of candy, I asked him to refrain. restart Celexa, home med not listed he asked abotu his HTN meds, not getting, I reviewed outpatient goals for HTN vs hospital and risk of hypotension on admit he is in agreement, blood sugar better controlled on more stringent hospital diet options. Vitals/I&O Vitals/I&O: Vital Signs Date Time Temp Pulse Resp B/P (MAP) Pulse Ox O2 Delivery O2 Flow Rate FiO2 02/24/22 11:00 98.0 72 18 132/66 (88) 98 Room Air 98.0 02/23/22 08:18 10.0 Physical Exam Physical Exam: GENERAL: Alert, oriented gentleman, not in distress. VITAL SIGNS: Stable, afebrile. HEENT: NAD. NECK: Supple, no JVP, no lymphadenopathy. LUNGS: Clear. HEART: S1, S2, regular. ABDOMEN: Soft, nontender, no organomegaly. EXTREMITIES: No edema or cyanosis. Toe amputation site seen NEUROLOGIC: The patient is alert, awake, and appropriate. No focal neurologic deficit. General: Alert, Oriented X3, Cooperative, No acute distress Abdomen: Normal bowel sounds, Soft, No tenderness, No hepatosplenomegaly, No masses Extremities: No clubbing, No cyanosis, Normal pulses, Other (left 2nd toe large, red, hot, plantar ulcer) Skin: Other (Ulcer on 2nd toe left foot) Labs Labs: Laboratory Tests Test 02/23/22 16:44 02/23/22 20:18 02/24/22 07:35 02/24/22 11:41 Glucose (Fingerstick) 260 mg/dL (70-99) 196 mg/dL (70-99) 123 mg/dL (70-99) 183 mg/dL (70-99) Comment Review of Relevant I have reviewed the following items deisi (where applicable) has been applied. Medications: Current Medications Medications (Trade) Dose Ordered Sig/Gamal Route PRN Reason Start Time Stop Time Status Last Admin Dose Admin Naproxen (Naprosyn) 500 mg 1X ONCE PO 02/23/22 23:00 02/23/22 23:01 DC 02/23/22 23:18 Justifications for Admission Other Justification Failure of outpatient antibiotics MAME RICHARDS MD Feb 24, 2022 13:29
[2022-02-24] MEDS: CITALOPRAM 10 MG TABLET. PO SCH (13:42)
[2022-02-24] MEDS: LOSARTAN POTASSIUM 25 MG TABLET. PO SCH (13:43)
[2022-02-24 15:00] VITALS: BP 126/63
[2022-02-24 19:00] VITALS: BP 153/71
[2022-02-24] MEDS: ATORVASTATIN CALCIUM 10 MG TABLET. PO SCH (21:00)
[2022-02-24] MEDS: INSULIN GLARGINE SYRINGE. SQ SCH (21:13)
[2022-02-24 23:29] VITALS: BP 128/72
[2022-02-25] VITALS (12 sets, daily range): BP systolic 104–151; BP diastolic 46–84
[2022-02-25] MEDS: PIPERACILLIN/TAZOBACTAM 3.375 GM in IV NORMAL SALINE 50ML 50 ML IV SCH ×5 (00:15→23:35)
[2022-02-25] MEDS ORDERED: HYDROmorphone 2 MG/ML INJ. IVP PRN (06:00)
[2022-02-25] MEDS ORDERED: fentaNYL PF VIAL 100 MCG/2 ML VIAL IVP PRN ×2 (06:00)
[2022-02-25] MEDS: HEPARIN for SUB-Q USE 5,000 UNIT/ML VIAL. SQ SCH ×3 (06:00→22:15)
[2022-02-25] MEDS ORDERED: MORPHINE SULFATE 2 MG/ML INJ. IVP PRN (06:00)
[2022-02-25] MEDS ORDERED: IV RINGERS,LACTATED 1000ML 1,000 ML IV SCH (06:00)
[2022-02-25] MEDS ORDERED: PROCHLORPERAZINE 10 MG/2 ML VIAL. IVP PRN (06:00)
[2022-02-25] MEDS: INSULIN LISPRO 300 UNITS/3 ML VIAL. SQ SCH ×3 (07:55→17:00)
[2022-02-25] MEDS: CITALOPRAM 10 MG TABLET. PO SCH (07:57)
[2022-02-25] MEDS: MULTIVITAMIN with MINERAL TABLET. PO SCH (07:57)
[2022-02-25] MEDS: SENNOSIDES/DOCUSATE 8.6/50MG TABLET. PO SCH ×2 (07:57→21:14)
[2022-02-25] MEDS: ASCORBIC ACID 500 MG TABLET PO SCH (07:57)
[2022-02-25] MEDS: LOSARTAN POTASSIUM 25 MG TABLET. PO SCH (07:57)
[2022-02-25] MEDS: LACTOBACILLUS RHAMNOSUS GG 1 CAPSULE. PO SCH ×2 (07:57→21:14)
[2022-02-25 08:18] LABS: BASO % 1 % (0-3); EOS # 0.3 x10^3/uL (0.0-0.7); EOS % 5 % (0-3); HEMATOCRIT 38.2 % (39.0-53.0); HEMOGLOBIN 12.8 g/dL (13.0-17.5); LYMPH # 1.4 x10^3/uL (1.0-4.8); LYMPH % 24 % (24-48); MEAN CORPUSCULAR HEMOGLOBIN 33 pg (25-35); MEAN CORPUSCULAR HGB CONC 33 g/dL (31-37); MEAN CORPUSCULAR VOLUME 100 fL (79-100); MONO # 0.6 x10^3/uL (0.0-1.1); MONO % 10 % (0-9); NEUT # 3.4 x10^3/uL (1.8-7.7); NEUT % 60 % (31-73); PLATELET COUNT 237 x10^3/uL (140-400); RED BLOOD COUNT 3.84 x10^6/uL (4.30-5.70); RED CELL DISTRIBUTION WIDTH 12.3 % (11.5-14.5); WHITE BLOOD COUNT 5.7 x10^3/uL (4.0-11.0)
[2022-02-25 08:33] LABS: ALBUMIN/GLOBULIN RATIO 0.6 (1.0-1.7); CALCIUM 9.1 mg/dL (8.5-10.1); CREATININE 1.1 mg/dL (0.7-1.3); GFR 67.2; POTASSIUM 4.4 mmol/L (3.5-5.1); TOTAL BILIRUBIN 0.8 mg/dL (0.2-1.0); TOTAL PROTEIN 7.8 g/dL (6.4-8.2)
--- NOTE | 2022-02-25 10:55 | PDOC ---
[facility] PROGRESS NOTE Date of Service DOS: DATE: 02/25/22 TIME: 10:50 Chief Complaint Chief Complaint Left 2nd toe cellulitis - failed outpatient antibiotic therapy. 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 He noted left second toe pain swelling and redness with some yellowish discharge and ulcer went to his primary care physician on 02/11/2022 and was started on cefuroxime. He had referral to podiatry and after being seen in the office noted ulcer with osteomyelitis on radiograph and failure to improve despite outpatient antibiotics. Seen bedside does have foul-smelling discharge from left second toe. Cultures were obtained in podiatry office. Given osteomyelitis findings he is being considered for amputation. Prior to admission his diabetes outpatient has been controlled well and his A1c improved from 7.3-7.2 this most recent visit in January 2022. 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 02/20/2022 No acute events overnight. Patient seen examined bedside. On-call to the OR for surgery. Follow-up 02/21/2022 No acute events overnight. Patient seen examined bedside. AF and VSS. Pain is well controlled. Dr. Uribe will be back again this afternoon to reevaluate surgical wound to see if second trip to the OR if needed. Patient's chart, labs, images were reviewed and discussed with RN 02/22/22 No acute events overnight. Pain well controlled. Ambulating without assistance. AF and VSS. Plan for second look in the OR with Dr Uribe. Patient's chart, labs, images were reviewed and discussed with RN 02/23/2022 No acute events overnight. Patient seen examined sitting on recliner. Pain is well controlled. AF and VSS. Moving well on his own. Plan for second look take back to the OR on Friday with Dr. Uribe. Patient's chart, labs, images were reviewed and discussed with RN 02/24, will adjust his insulin down, surg planned for tomorrow, diet hre reviewed, he had a glucose spike yesterdya, "friends" brought him a couple pieces of candy, I asked him to refrain. restart Celexa, home med not listed he asked abotu his HTN meds, not getting, I reviewed outpatient goals for HTN vs hospital and risk of hypotension on admit he is in agreement, blood sugar better controlled on more stringent hospital diet options. Vitals/I&O Vitals/I&O: Vital Signs Date Time Temp Pulse Resp B/P (MAP) Pulse Ox O2 Delivery O2 Flow Rate FiO2 02/25/22 07:15 97.6 62 18 120/60 (80) 97 Room Air 97.6 I & O 02/24/22 02/24/22 02/25/22 15:00 23:00 07:00 Intake Total 100 ml 100 ml Balance 100 ml 100 ml Physical Exam Physical Exam: GENERAL: Alert, oriented gentleman, not in distress. VITAL SIGNS: Stable, afebrile. HEENT: NAD. NECK: Supple, no JVP, no lymphadenopathy. LUNGS: Clear. HEART: S1, S2, regular. ABDOMEN: Soft, nontender, no organomegaly. EXTREMITIES: No edema or cyanosis. Toe amputation site seen NEUROLOGIC: The patient is alert, awake, and appropriate. No focal neurologic deficit. General: Alert, Oriented X3, Cooperative, No acute distress Heart: Regular rate Abdomen: Normal bowel sounds, Soft, No tenderness, No hepatosplenomegaly, No masses Extremities: No clubbing, No cyanosis, Normal pulses, Other (Left second toe with wound VAC in place) Skin: Other (Ulcer on 2nd toe left foot) Labs Labs: Laboratory Tests Test 02/24/22 11:41 02/24/22 17:12 02/25/22 01:03 02/25/22 07:03 Glucose (Fingerstick) 183 mg/dL (70-99) 147 mg/dL (70-99) 144 mg/dL (70-99) 134 mg/dL (70-99) Test 02/25/22 07:10 White Blood Count 5.7 x10^3/uL (4.0-11.0) Red Blood Count 3.84 x10^6/uL (4.30-5.70) Hemoglobin 12.8 g/dL (13.0-17.5) Hematocrit 38.2 % (39.0-53.0) Mean Corpuscular Volume 100 fL (79-100) Mean Corpuscular Hemoglobin 33 pg (25-35) Mean Corpuscular Hemoglobin Concent 33 g/dL (31-37) Red Cell Distribution Width 12.3 % (11.5-14.5) Platelet Count 237 x10^3/uL (140-400) Neutrophils (%) (Auto) 60 % (31-73) Lymphocytes (%) (Auto) 24 % (24-48) Monocytes (%) (Auto) 10 % (0-9) Eosinophils (%) (Auto) 5 % (0-3) Basophils (%) (Auto) 1 % (0-3) Neutrophils # (Auto) 3.4 x10^3/uL (1.8-7.7) Lymphocytes # (Auto) 1.4 x10^3/uL (1.0-4.8) Monocytes # (Auto) 0.6 x10^3/uL (0.0-1.1) Eosinophils # (Auto) 0.3 x10^3/uL (0.0-0.7) Basophils # (Auto) 0.0 x10^3/uL (0.0-0.2) Sodium Level 138 mmol/L (136-145) Potassium Level 4.4 mmol/L (3.5-5.1) Chloride Level 103 mmol/L (98-107) Carbon Dioxide Level 27 mmol/L (21-32) Anion Gap 8 (6-14) Blood Urea Nitrogen 12 mg/dL (8-26) Creatinine 1.1 mg/dL (0.7-1.3) Estimated GFR (Cockcroft-Gault) 67.2 BUN/Creatinine Ratio 11 (6-20) Glucose Level 131 mg/dL (70-99) Calcium Level 9.1 mg/dL (8.5-10.1) Total Bilirubin 0.8 mg/dL (0.2-1.0) Aspartate Amino Transf (AST/SGOT) 43 U/L (15-37) Alanine Aminotransferase (ALT/SGPT) 66 U/L (16-63) Alkaline Phosphatase 60 U/L (46-116) Total Protein 7.8 g/dL (6.4-8.2) Albumin 3.0 g/dL (3.4-5.0) Albumin/Globulin Ratio 0.6 (1.0-1.7) Assessment and Plan Assessmemt and Plan Left second toe cellulitis/ulcer/probable osteomyelitis Hypertension Hyperlipidemia Diabetes PVD Depression Plan He is going for closure of the left second toe today with Dr. Uribe For now continue IV antibiotics Home meds DVT prophylaxis Full code Postoperatively he will need wound care and hope to discharge with home health soon Diabetic diet after surgery FULL CODE Dispo - inpatient for above Comment Review of Relevant I have reviewed the following items deisi (where applicable) has been applied. Medications: Current Medications Medications (Trade) Dose Ordered Sig/Gamal Route PRN Reason Start Time Stop Time Status Last Admin Dose Admin Losartan Potassium (Cozaar) 25 mg DAILY PO 02/24/22 13:00 02/24/22 13:43 Insulin Glargine (Lantus Syringe) 22 unit QHS SQ 02/24/22 21:00 02/24/22 21:13 Citalopram Hydrobromide (CeleXA) 10 mg DAILY PO 02/24/22 13:00 02/24/22 13:42 Justifications for Admission Other Justification Failure of outpatient antibiotics KAYLA SALAZAR III DO Feb 25, 2022 10:54
[2022-02-25] MEDS ORDERED: BUPIVACAINE MPF 0.5% 30 ML VIAL. ONE ×2 (11:42→13:11)
[2022-02-25] MEDS ORDERED: LIDOCAINE 1% PF 30 ML VIAL. ONE (11:42)
[2022-02-25] MEDS ORDERED: POVIDONE-IODINE 10% TOPICAL OINTMENT 28GM TUBE. TP ONE (11:42)
[2022-02-25] MEDS ORDERED: DEXAMETHASONE SOD PHOS 4 MG/ML VIAL ONE ×2 (11:42→12:22)
--- NOTE | 2022-02-25 11:57 | PDOC ---
PROGRESS NOTES Date of Service DATE: 02/25/22 TIME: 11:53 Subjective Subjective Patient denies any overnight event. Patient has tolerated at the VAC well without any leakage. Patient denies any constitutional symptoms. Overnight output in the canister was minimal. Objective Objective Vital Signs Date Time Temp Pulse Resp B/P (MAP) Pulse Ox O2 Delivery O2 Flow Rate FiO2 02/25/22 11:00 97.4 66 18 131/60 (83) 95 Room Air 97.4 02/23/22 08:18 10.0 Intake and Output 02/25/22 07:00 Intake Total 200 ml Balance 200 ml Intake Oral 200 ml # Voids 6 # Bowel Movements 1 Physical Exam Physical Exam General: Pleasant without apparent distress, AOx3 Left lower extremity focused Dermatology: -VAC is in place with minimal overnight sanguinous output in the canister. The erythema to the peripheral wound is receding without any purulence, proximal streaking. 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 Keep it clean, dry and intact without any dressing change. -Daily surveillance lab: no leukocytosis -Antibiotics: Currently on daptomycin and Zosyn, please de-escalate based on culture/pathology report - Wound cx [02/19]: grew MRSA, streptococci, Prevotella, Trueperella - Wound cx [02/20]: NGTD - Pathology [02/20]: osteomyelitis was limited distal to MTPJ - BCX [02/19]: Neg -Weightbearing restriction: Minimal heel touchdown weightbearing to left lower extremity while protected in the surgical shoe -Physical therapy: Eval and treat following the weightbearing restriction as above -Encouraged compliance with incentive spirometry Dispo:Patient has been kept n.p.o. and consented for repeat incision and drainage, delayed primary closure of the left second surgical site. I explained to patient that the skin envelope appears healthy but the attenuation may require an additional plastic skin closure with autograft versus allograft as an outpatient in the future. Comment Review of Relevant I have reviewed the following items deisi (where applicable) has been applied. Labs Laboratory Tests Test 02/23/22 16:44 02/23/22 20:18 02/24/22 07:35 02/24/22 11:41 Glucose (Fingerstick) 260 mg/dL (70-99) 196 mg/dL (70-99) 123 mg/dL (70-99) 183 mg/dL (70-99) Test 02/24/22 17:12 02/25/22 01:03 02/25/22 07:03 02/25/22 07:10 Glucose (Fingerstick) 147 mg/dL (70-99) 144 mg/dL (70-99) 134 mg/dL (70-99) White Blood Count 5.7 x10^3/uL (4.0-11.0) Red Blood Count 3.84 x10^6/uL (4.30-5.70) Hemoglobin 12.8 g/dL (13.0-17.5) Hematocrit 38.2 % (39.0-53.0) Mean Corpuscular Volume 100 fL (79-100) Mean Corpuscular Hemoglobin 33 pg (25-35) Mean Corpuscular Hemoglobin Concent 33 g/dL (31-37) Red Cell Distribution Width 12.3 % (11.5-14.5) Platelet Count 237 x10^3/uL (140-400) Neutrophils (%) (Auto) 60 % (31-73) Lymphocytes (%) (Auto) 24 % (24-48) Monocytes (%) (Auto) 10 % (0-9) Eosinophils (%) (Auto) 5 % (0-3) Basophils (%) (Auto) 1 % (0-3) Neutrophils # (Auto) 3.4 x10^3/uL (1.8-7.7) Lymphocytes # (Auto) 1.4 x10^3/uL (1.0-4.8) Monocytes # (Auto) 0.6 x10^3/uL (0.0-1.1) Eosinophils # (Auto) 0.3 x10^3/uL (0.0-0.7) Basophils # (Auto) 0.0 x10^3/uL (0.0-0.2) Sodium Level 138 mmol/L (136-145) Potassium Level 4.4 mmol/L (3.5-5.1) Chloride Level 103 mmol/L (98-107) Carbon Dioxide Level 27 mmol/L (21-32) Anion Gap 8 (6-14) Blood Urea Nitrogen 12 mg/dL (8-26) Creatinine 1.1 mg/dL (0.7-1.3) Estimated GFR (Cockcroft-Gault) 67.2 BUN/Creatinine Ratio 11 (6-20) Glucose Level 131 mg/dL (70-99) Calcium Level 9.1 mg/dL (8.5-10.1) Total Bilirubin 0.8 mg/dL (0.2-1.0) Aspartate Amino Transf (AST/SGOT) 43 U/L (15-37) Alanine Aminotransferase (ALT/SGPT) 66 U/L (16-63) Alkaline Phosphatase 60 U/L (46-116) Total Protein 7.8 g/dL (6.4-8.2) Albumin 3.0 g/dL (3.4-5.0) Albumin/Globulin Ratio 0.6 (1.0-1.7) Laboratory Tests Test 02/24/22 17:12 02/25/22 01:03 02/25/22 07:03 02/25/22 07:10 Glucose (Fingerstick) 147 mg/dL (70-99) 144 mg/dL (70-99) 134 mg/dL (70-99) White Blood Count 5.7 x10^3/uL (4.0-11.0) Red Blood Count 3.84 x10^6/uL (4.30-5.70) Hemoglobin 12.8 g/dL (13.0-17.5) Hematocrit 38.2 % (39.0-53.0) Mean Corpuscular Volume 100 fL (79-100) Mean Corpuscular Hemoglobin 33 pg (25-35) Mean Corpuscular Hemoglobin Concent 33 g/dL (31-37) Red Cell Distribution Width 12.3 % (11.5-14.5) Platelet Count 237 x10^3/uL (140-400) Neutrophils (%) (Auto) 60 % (31-73) Lymphocytes (%) (Auto) 24 % (24-48) Monocytes (%) (Auto) 10 % (0-9) Eosinophils (%) (Auto) 5 % (0-3) Basophils (%) (Auto) 1 % (0-3) Neutrophils # (Auto) 3.4 x10^3/uL (1.8-7.7) Lymphocytes # (Auto) 1.4 x10^3/uL (1.0-4.8) Monocytes # (Auto) 0.6 x10^3/uL (0.0-1.1) Eosinophils # (Auto) 0.3 x10^3/uL (0.0-0.7) Basophils # (Auto) 0.0 x10^3/uL (0.0-0.2) Sodium Level 138 mmol/L (136-145) Potassium Level 4.4 mmol/L (3.5-5.1) Chloride Level 103 mmol/L (98-107) Carbon Dioxide Level 27 mmol/L (21-32) Anion Gap 8 (6-14) Blood Urea Nitrogen 12 mg/dL (8-26) Creatinine 1.1 mg/dL (0.7-1.3) Estimated GFR (Cockcroft-Gault) 67.2 BUN/Creatinine Ratio 11 (6-20) Glucose Level 131 mg/dL (70-99) Calcium Level 9.1 mg/dL (8.5-10.1) Total Bilirubin 0.8 mg/dL (0.2-1.0) Aspartate Amino Transf (AST/SGOT) 43 U/L (15-37) Alanine Aminotransferase (ALT/SGPT) 66 U/L (16-63) Alkaline Phosphatase 60 U/L (46-116) Total Protein 7.8 g/dL (6.4-8.2) Albumin 3.0 g/dL (3.4-5.0) Albumin/Globulin Ratio 0.6 (1.0-1.7) Microbiology 02/19/22 Blood Culture - Final, Complete NO GROWTH AFTER 5 DAYS Medications Current Medications Acetaminophen (Tylenol) 650 mg PRN Q6HRS PRN PO MILD PAIN / TEMP > 100.3'F; Start 02/19/22 at 14:15 Ondansetron HCl (Zofran) 4 mg PRN Q4HRS PRN IVP NAUSEA/VOMITING; Start 02/19/22 at 14:15 Hydralazine HCl (Apresoline Inj) 10 mg PRN Q4HRS PRN IVP ELEVATED BP, SEE COMMENTS; Start 02/19/22 at 14:15 Atorvastatin Calcium (Lipitor) 5 mg QHS PO Last administered on 02/24/22at 21:00; Start 02/19/22 at 21:00 Insulin Human Lispro (HumaLOG) 0-9 UNITS TIDWMEALS SQ Last administered on 02/24/22at 12:48; Start 02/19/22 at 17:00 Dextrose (Dextrose 50%-Water Syringe) 12.5 gm PRN Q15MIN PRN IV SEE COMMENTS; Start 02/19/22 at 14:15 Dextrose (Iv Dextrose 5%) 250 ml PRN Q15MIN PRN IV SEE COMMENTS; Start 02/19/22 at 14:15 Vancomycin HCl (Vanco Per Pharmacy) 1 each PRN DAILY PRN MC SEE COMMENTS Last administered on 02/19/22at 18:24; Start 02/19/22 at 14:15; Stop 02/20/22 at 16:13; Status DC Vancomycin HCl 2 gm/Sodium Chloride 500 ml @ 250 mls/hr 1X ONCE IV Last administered on 02/19/22at 17:26; Start 02/19/22 at 15:00; Stop 02/19/22 at 16:59; Status DC Piperacillin Sod/ Tazobactam Sod 3.375 gm/Sodium Chloride 50 ml @ 100 mls/hr Q6HRS IV Last administered on 02/25/22at 11:12; Start 02/19/22 at 14:30 Piperacillin Sod/ Tazobactam Sod (Zosyn Per Pharmacy) 1 each PRN DAILY PRN MC SEE COMMENTS; Start 02/19/22 at 14:15 Sodium Chloride 1,000 ml @ 100 mls/hr Q10H IV Last administered on 02/19/22at 16:09; Start 02/19/22 at 14:15; Stop 02/20/22 at 00:14; Status DC Senna/Docusate Sodium (Senna Plus) 1 tab BID PO Last administered on 02/24/22at 21:00; Start 02/19/22 at 21:00 Fentanyl Citrate (Fentanyl 2ml Vial) 25 mcg PRN Q5MIN PRN IVP MILD PAIN 1-3; Start 02/20/22 at 06:00; Stop 02/20/22 at 16:09; Status DC Fentanyl Citrate (Fentanyl 2ml Vial) 50 mcg PRN Q5MIN PRN IVP MODERATE PAIN 4- 6; Start 02/20/22 at 06:00; Stop 02/20/22 at 16:09; Status DC Morphine Sulfate (Morphine Sulfate) 1 mg PRN Q10MIN PRN IVP SEVERE PAIN 7-10; Start 02/20/22 at 06:00; Stop 02/20/22 at 16:12; Status DC Ringer's Solution 1,000 ml @ 30 mls/hr Q24H IV Last administered on 02/20/22at 09:34; Start 02/20/22 at 06:00; Stop 02/20/22 at 17:59; Status DC Hydromorphone HCl (Dilaudid) 0.5 mg PRN Q10MIN PRN IVP SEVERE PAIN 7-10, 2nd CHOICE; Start 02/20/22 at 06:00; Stop 02/20/22 at 16:12; Status DC Prochlorperazine Edisylate (Compazine) 5 mg PACU PRN PRN IVP NAUSEA, MRX1; Start 02/20/22 at 06:00; Stop 02/20/22 at 16:12; Status DC Insulin Glargine (Lantus Syringe) 25 unit QHS SQ Last administered on 02/23/22at 21:21; Start 02/19/22 at 21:00; Stop 02/24/22 at 12:18; Status DC Vancomycin HCl (Vancomycin Trough Level) 1 each 1X ONCE MC ; Start 02/21/22 at 22:30; Stop 02/20/22 at 16:13; Status DC Vancomycin HCl 2 gm/Sodium Chloride 500 ml @ 250 mls/hr Q18H IV Last administered on 02/20/22at 10:47; Start 02/20/22 at 11:00; Stop 02/20/22 at 12:42; Status DC Propofol (Diprivan) 200 mg STK-MED ONCE IV ; Start 02/20/22 at 08:04; Stop 02/20/22 at 08:04; Status DC Lidocaine HCl (Xylocaine-Mpf 1% 5ml Vial) 5 ml STK-MED ONCE .ROUTE ; Start 02/20/22 at 08:04; Stop 02/20/22 at 08:04; Status DC Ondansetron HCl (Zofran) 4 mg STK-MED ONCE .ROUTE ; Start 02/20/22 at 08:04; Stop 02/20/22 at 08:04; Status DC Dexamethasone Sodium Phosphate (Decadron) 4 mg STK-MED ONCE .ROUTE ; Start 02/20/22 at 08:04; Stop 02/20/22 at 08:04; Status DC Fentanyl Citrate (Fentanyl 2ml Vial) 100 mcg STK-MED ONCE .ROUTE ; Start 02/20/22 at 08:58; Stop 02/20/22 at 08:58; Status DC Multivitamins (Thera M Plus) 1 tab DAILY PO Last administered on 02/24/22at 08:09; Start 02/20/22 at 10:00 Ascorbic Acid (Vitamin C) 500 mg DAILY PO Last administered on 02/24/22at 08:09; Start 02/20/22 at 10:00 Famotidine (Pepcid Vial) 20 mg 1X ONCE IVP Last administered on 02/20/22at 09:33; Start 02/20/22 at 09:30; Stop 02/20/22 at 09:31; Status DC Bupivacaine HCl (Sensorcaine Mpf 0.25%) 30 ml STK-MED ONCE .ROUTE Last administered on 02/20/22at 10:42; Start 02/20/22 at 09:34; Stop 02/20/22 at 09:34; Status DC Glycopyrrolate (Robinul) 1 mg STK-MED ONCE .ROUTE ; Start 02/20/22 at 09:57; Stop 02/20/22 at 09:57; Status DC Daptomycin 560 mg/ Sodium Chloride 50 ml @ 100 mls/hr Q24H IV Last administered on 02/24/22at 12:50; Start 02/20/22 at 14:00 Lactobacillus Rhamnosus (Culturelle) 1 cap BID PO Last administered on 02/24/22at 21:00; Start 02/20/22 at 21:00 Heparin Sodium (Porcine) (Heparin Sodium) 5,000 unit Q8HRS SQ Last administered on 02/24/22at 21:13; Start 02/21/22 at 14:00 Fentanyl Citrate (Fentanyl 2ml Vial) 25 mcg PRN Q5MIN PRN IVP MILD PAIN 1-3; Start 02/25/22 at 06:00; Stop 02/26/22 at 05:59 Fentanyl Citrate (Fentanyl 2ml Vial) 50 mcg PRN Q5MIN PRN IVP MODERATE PAIN 4- 6; Start 02/25/22 at 06:00; Stop 02/26/22 at 05:59 Morphine Sulfate (Morphine Sulfate) 1 mg PRN Q10MIN PRN IVP SEVERE PAIN 7-10; Start 02/25/22 at 06:00; Stop 02/26/22 at 05:59 Ringer's Solution 1,000 ml @ 30 mls/hr Q24H IV ; Start 02/25/22 at 06:00; Stop 02/25/22 at 17:59 Hydromorphone HCl (Dilaudid) 0.5 mg PRN Q10MIN PRN IVP SEVERE PAIN 7-10, 2nd CHOICE; Start 02/25/22 at 06:00; Stop 02/26/22 at 05:59 Prochlorperazine Edisylate (Compazine) 5 mg PACU PRN PRN IVP NAUSEA, MRX1; Start 02/25/22 at 06:00; Stop 02/26/22 at 05:59 Naproxen (Naprosyn) 500 mg 1X ONCE PO Last administered on 02/23/22at 23:18; Start 02/23/22 at 23:00; Stop 02/23/22 at 23:01; Status DC Losartan Potassium (Cozaar) 25 mg DAILY PO Last administered on 02/24/22at 13:43; Start 02/24/22 at 13:00 Insulin Glargine (Lantus Syringe) 22 unit QHS SQ Last administered on 02/24/22at 21:13; Start 02/24/22 at 21:00 Citalopram Hydrobromide (CeleXA) 10 mg DAILY PO Last administered on 02/24/22at 13:42; Start 02/24/22 at 13:00 Povidone Iodine (Betadine Oint) 28 [place] STK-MED ONCE TP ; Start 02/25/22 at 11:42; Stop 02/25/22 at 11:42; Status DC Lidocaine HCl (Xylocaine 1% Pf 30ml Vial) 30 ml STK-MED ONCE .ROUTE ; Start 02/25/22 at 11:42; Stop 02/25/22 at 11:42; Status DC Dexamethasone Sodium Phosphate (Decadron) 4 mg STK-MED ONCE .ROUTE ; Start 02/25/22 at 11:42; Stop 02/25/22 at 11:43; Status DC Bupivacaine HCl (Sensorcaine Mpf 0.5%) 30 ml STK-MED ONCE .ROUTE ; Start 02/25/22 at 11:42; Stop 02/25/22 at 11:43; Status DC Active Scripts Active Reported Glyxambi 25 mg-5 mg Tablet (Empagliflozin/Linagliptin) 1 Each Tablet 1 Each PO DAILY Pravastatin Sodium 20 Mg Tablet 20 Mg PO DAILY Losartan-Hctz 50-12.5 Mg Tab (Losartan/Hydrochlorothiazide) 1 Each Tablet 1 Tab PO BID Metformin Hcl 500 Mg Tablet 500 Mg PO BIDWMEALS Levemir (Insulin Detemir) 100 Unit/1 Ml Vial 1 SQ DAILY Vitals/I & O Vital Sign - Last 24 Hours 02/24/22 02/24/22 02/24/22 02/24/22 13:43 15:00 19:00 19:55 Temp 98.2 98.2 98.2 98.2 Pulse 72 75 76 Resp 16 20 B/P (MAP) 132/66 126/63 (84) 153/71 (98) Pulse Ox 96 97 O2 Delivery Room Air Room Air Room Air 02/24/22 02/25/22 02/25/22 02/25/22 23:29 03:00 07:15 11:00 Temp 98.2 97.9 97.6 97.4 98.2 97.9 97.6 97.4 Pulse 65 63 62 66 Resp 20 20 18 18 B/P (MAP) 128/72 (90) 134/65 (88) 120/60 (80) 131/60 (83) Pulse Ox 97 97 97 95 O2 Delivery Room Air BiPAP/CPAP Room Air Room Air Intake and Output 02/24/22 02/24/22 02/25/22 15:00 23:00 07:00 Intake Total 100 ml 100 ml Balance 100 ml 100 ml Justifications for Admission Other Justification Failure of outpatient antibiotics NICK CHAUHAN DPAriel Feb 25, 2022 11:57
--- NOTE | 2022-02-25 12:02 | PDOC ---
Infectious Disease Note Subjective Subjective pt is feeling good ROS ROS no n/v/d/ Vital Sign Vital Signs Vital Signs Date Time Temp Pulse Resp B/P (MAP) Pulse Ox O2 Delivery O2 Flow Rate FiO2 02/25/22 11:00 97.4 66 18 131/60 (83) 95 Room Air 97.4 Physical Exam PHYSICAL EXAM GENERAL: Alert, oriented gentleman, not in distress. VITAL SIGNS: Stable, afebrile. HEENT: NAD. NECK: Supple, no JVP, no lymphadenopathy. LUNGS: Clear. HEART: S1, S2, regular. ABDOMEN: Soft, nontender, no organomegaly. EXTREMITIES: No edema or cyanosis. Toe amputation site seen NEUROLOGIC: The patient is alert, awake, and appropriate. No focal neurologic deficit. Labs Lab Laboratory Tests Test 02/24/22 17:12 02/25/22 01:03 02/25/22 07:03 02/25/22 07:10 Glucose (Fingerstick) 147 mg/dL (70-99) 144 mg/dL (70-99) 134 mg/dL (70-99) White Blood Count 5.7 x10^3/uL (4.0-11.0) Red Blood Count 3.84 x10^6/uL (4.30-5.70) Hemoglobin 12.8 g/dL (13.0-17.5) Hematocrit 38.2 % (39.0-53.0) Mean Corpuscular Volume 100 fL (79-100) Mean Corpuscular Hemoglobin 33 pg (25-35) Mean Corpuscular Hemoglobin Concent 33 g/dL (31-37) Red Cell Distribution Width 12.3 % (11.5-14.5) Platelet Count 237 x10^3/uL (140-400) Neutrophils (%) (Auto) 60 % (31-73) Lymphocytes (%) (Auto) 24 % (24-48) Monocytes (%) (Auto) 10 % (0-9) Eosinophils (%) (Auto) 5 % (0-3) Basophils (%) (Auto) 1 % (0-3) Neutrophils # (Auto) 3.4 x10^3/uL (1.8-7.7) Lymphocytes # (Auto) 1.4 x10^3/uL (1.0-4.8) Monocytes # (Auto) 0.6 x10^3/uL (0.0-1.1) Eosinophils # (Auto) 0.3 x10^3/uL (0.0-0.7) Basophils # (Auto) 0.0 x10^3/uL (0.0-0.2) Sodium Level 138 mmol/L (136-145) Potassium Level 4.4 mmol/L (3.5-5.1) Chloride Level 103 mmol/L (98-107) Carbon Dioxide Level 27 mmol/L (21-32) Anion Gap 8 (6-14) Blood Urea Nitrogen 12 mg/dL (8-26) Creatinine 1.1 mg/dL (0.7-1.3) Estimated GFR (Cockcroft-Gault) 67.2 BUN/Creatinine Ratio 11 (6-20) Glucose Level 131 mg/dL (70-99) Calcium Level 9.1 mg/dL (8.5-10.1) Total Bilirubin 0.8 mg/dL (0.2-1.0) Aspartate Amino Transf (AST/SGOT) 43 U/L (15-37) Alanine Aminotransferase (ALT/SGPT) 66 U/L (16-63) Alkaline Phosphatase 60 U/L (46-116) Total Protein 7.8 g/dL (6.4-8.2) Albumin 3.0 g/dL (3.4-5.0) Albumin/Globulin Ratio 0.6 (1.0-1.7) Micro Microbiology 02/19/22 Blood Culture - Preliminary, Resulted NO GROWTH AFTER 1 DAY Objective Assessment IMPRESSION: 1. Left second toe distal phalanx osteomyelitis. s/p amputation 2. Left second toe distal interphalangeal joint infection. 3. Diabetes. 4. Hypertension. 5. Hyperlipidemia. Plan Plan of Care cont antibiotics cont supportive care Wound VAC wound closure planned for today XOCHITL CABALLERO MD Feb 25, 2022 12:02
[2022-02-25] MEDS ORDERED: SUCCINYLCHOLINE 200 MG/10 ML VIAL. ONE (12:22)
[2022-02-25] MEDS ORDERED: LIDOCAINE 2% PF 5 ML VIAL. ONE (12:22)
[2022-02-25] MEDS ORDERED: ONDANSETRON PF 4 MG/2 ML VIAL. ONE (12:22)
[2022-02-25] MEDS ORDERED: PROPOFOL 10 MG/ML (20ML) VIAL. IV ONE (12:22)
[2022-02-25] MEDS ORDERED: fentaNYL PF VIAL 100 MCG/2 ML VIAL ONE (12:22)
[2022-02-25] MEDS ORDERED: MIDAZOLAM HCL/PF 2 MG/2 ML VIAL. ONE (12:52)
[2022-02-25] MEDS ORDERED: PROPOFOL 50 ML IV ONE (13:03)
[2022-02-25] MEDS ORDERED: PHENYLEPHRINE in 0.9% NACL PF 1 MG/10 ML SYRINGE. IV ONE (13:11)
--- NOTE | 2022-02-25 13:49 | PDOC4 ---
OPERATIVE NOTE Date: Date: Feb 25, 2022 Pre-Op Diagnosis: S/p left second toe disarticulation at the MTPJ Left foot cellulitis Left second digit osteomyelitis in the setting of diabetes, peripheral neuropathy and PAD Post-Op Diagnosis: Same as above Procedure Performed: Repeat incision and drainage, delayed primary closure of the left forefoot Surgeon: Nick Chauhan DPM Anesthesia Type: Local MAC Blood Loss: 10 cc Specimans Obtained: None Findings: Granular base, significantly receding erythema to the peripheral second MTPJ. There is no fluctuance, proximal streaking or residual necrotic tissue changes. The second metatarsal head articular cartilage is intact. The residual bone probes hard. Complications: None Operative Note: Patient was brought into the operating room and placed on the operating table in a supine position. A timeout was performed to confirm patient's identity, location of surgery and procedure. MAC anesthesia, a pneumatic high ankle tourniquet was placed with pressure set 250 mmHg. Preoperative local anesthesia consisted of 10 cc of one-to-one mixture of 1% lidocaine plain, and 0.5% Marcaine plain was infiltrated to the distal second metatarsal neck following Betadine skin prep. The left lower extremity was then scrubbed, prepped and draped in the usual sterile manner. Tourniquet was not inflated. Then the attention was directed to left distal second MTPJ. The wound bed was granular without any fluctuance, necrotic tissue proximally or proximal tracking. The surgical site was irrigated with copious saline solution. Afterwards, wound site inspection remarked adequate granulation tissue, intact second metatarsal head articular cartilage. There was no intermetatarsal or proximal purulent tracking or necrotic tissue changes. The skin edges were granular and blood adequately after refreshed with a #15 blade. Because posterior washout culture was negative for any growth, no additional biopsy or culture were taken. The surgical site was closed in layers with 3-0 Vicryl, 3-0 nylon and 4-0 nylon under minimal tension. Postoperative anesthesia consisted of 10 cc of 0.5% Marcaine plain was infiltrated to the surgical site for pain control. The surgical foot was dressed with Xeroform, 4 x 4 gauze, soft roll and ABD. Left lower extremity was immobilized in a well-padded Loza compression splint with ankle held at 90 degrees. Patient tolerated procedure anesthesia well with vital signs stable and neurovascular status intact. Patient was then transferred to PACU for continued recovery. Dispo: Patient may be discharged home tomorrow with oral antibiotics driven by culture x2 weeks. Patient to be strict nonweightbearing to left lower extremity and keep the splint/dressing clean, dry and intact. Our office will call patient for postoperative follow-up in 2 weeks NICK CHAUHAN DPM Feb 25, 2022 13:49
[2022-02-25] MEDS ORDERED: oxyCODONE/APAP 5/325 1 TAB TABLET PO ONE (14:00)
[2022-02-25] MEDS ORDERED: ACETAMINOPHEN 325 MG TABLET. PO ONE (14:00)
[2022-02-25] MEDS ORDERED: GABAPENTIN 100 MG CAPSULE. PO ONE (14:00)
[2022-02-25] MEDS: DAPTOmycin (GENERIC) IVPB 560 MG in IV NORMAL SALINE 50ML 50 ML IV SCH (15:30)
[2022-02-25] MEDS: ATORVASTATIN CALCIUM 10 MG TABLET. PO SCH (21:14)
[2022-02-25] MEDS: INSULIN GLARGINE SYRINGE. SQ SCH (22:14)
[2022-02-25] MEDS ORDERED: CITALOPRAM 10 MG TABLET. PO ONE (22:30)
[2022-02-26 03:00] VITALS: BP 133/83
[2022-02-26] MEDS: PIPERACILLIN/TAZOBACTAM 3.375 GM in IV NORMAL SALINE 50ML 50 ML IV SCH ×2 (05:45→12:00)
[2022-02-26] MEDS: HEPARIN for SUB-Q USE 5,000 UNIT/ML VIAL. SQ SCH ×3 (05:50→21:55)
[2022-02-26 07:00] VITALS: BP 118/62
[2022-02-26] MEDS: INSULIN LISPRO 300 UNITS/3 ML VIAL. SQ SCH ×3 (08:00→17:00)
[2022-02-26] MEDS: SENNOSIDES/DOCUSATE 8.6/50MG TABLET. PO SCH ×2 (08:28→20:55)
[2022-02-26] MEDS: LACTOBACILLUS RHAMNOSUS GG 1 CAPSULE. PO SCH ×2 (08:29→20:54)
[2022-02-26] MEDS: ASCORBIC ACID 500 MG TABLET PO SCH (08:29)
[2022-02-26] MEDS: MULTIVITAMIN with MINERAL TABLET. PO SCH (08:29)
[2022-02-26] MEDS: CITALOPRAM 10 MG TABLET. PO SCH (08:30)
[2022-02-26] MEDS: LOSARTAN POTASSIUM 25 MG TABLET. PO SCH (08:30)
--- NOTE | 2022-02-26 08:39 | PDOC ---
PROGRESS NOTES Date of Service DATE: 02/26/22 TIME: 08:38 Subjective Subjective S/p 02/25 Left foot incision drainage, delayed primary closure Patient denies any over night events. Patient denies any worsening pain, or any constitutional symptoms. He has been tolerating the splint and dressing well. Objective Objective Vital Signs Date Time Temp Pulse Resp B/P (MAP) Pulse Ox O2 Delivery O2 Flow Rate FiO2 02/26/22 08:30 53 118/62 02/26/22 03:00 98.5 18 98 Room Air 98.5 02/25/22 14:08 6.0 Intake and Output 02/26/22 06:59 Intake Total 1025 ml Output Total 10 ml Balance 1015 ml Intake Oral 300 ml IV Total 725 ml Estimated Blood Loss 10 ml # Voids 5 # Bowel Movements 1 Physical Exam Physical Exam General: Pleasant without apparent distress, AOx3 Left lower extremity focused Dermatology: -Postoperative dressing is clean, dry and intact without any strikethrough Vascular: -Foot is warm to touch with CFT less than 3 seconds x 5 Neurology: -Light touch sensation diminished to Digits 1 through 4 MSK: -Able to move digits x4 -Calf is soft and nontender Plan Plan of Care 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 -Daily surveillance lab: no leukocytosis -Antibiotics: Okay to convert to oral antibiotics, per ID rec - Wound cx [02/19]: grew MRSA, streptococci, Prevotella, Trueperella - Wound cx [02/20]: NGTD - Pathology [02/20]: osteomyelitis was limited distal to MTPJ - BCX [02/19]: Neg -Weightbearing restriction: Ideally nonweightbearing but okay toMinimal heel touchdown weightbearing to left lower extremity while protected in the Splint -Physical therapy: Eval and treat following the weightbearing restriction as above -Encouraged compliance with incentive spirometry Dispo: Patient is safe discharge home today after PT eval to demonstrate the ability to remain nonweightbearing or partial heel touchdown weightbearing with the choice of gait aid. Please discharge patient with 2 weeks of oral antibiot ics driven by culture. Patient will see me as an outpatient in 2 weeks. Our office will arrange the appointment. In the meantime, the dressing has to be kept clean, dry and intact. Comment Review of Relevant I have reviewed the following items deisi (where applicable) has been applied. Labs Laboratory Tests Test 02/24/22 11:41 02/24/22 17:12 02/25/22 01:03 02/25/22 07:03 Glucose (Fingerstick) 183 mg/dL (70-99) 147 mg/dL (70-99) 144 mg/dL (70-99) 134 mg/dL (70-99) Test 02/25/22 07:10 02/25/22 16:50 02/25/22 21:37 02/26/22 08:24 White Blood Count 5.7 x10^3/uL (4.0-11.0) Red Blood Count 3.84 x10^6/uL (4.30-5.70) Hemoglobin 12.8 g/dL (13.0-17.5) Hematocrit 38.2 % (39.0-53.0) Mean Corpuscular Volume 100 fL (79-100) Mean Corpuscular Hemoglobin 33 pg (25-35) Mean Corpuscular Hemoglobin Concent 33 g/dL (31-37) Red Cell Distribution Width 12.3 % (11.5-14.5) Platelet Count 237 x10^3/uL (140-400) Neutrophils (%) (Auto) 60 % (31-73) Lymphocytes (%) (Auto) 24 % (24-48) Monocytes (%) (Auto) 10 % (0-9) Eosinophils (%) (Auto) 5 % (0-3) Basophils (%) (Auto) 1 % (0-3) Neutrophils # (Auto) 3.4 x10^3/uL (1.8-7.7) Lymphocytes # (Auto) 1.4 x10^3/uL (1.0-4.8) Monocytes # (Auto) 0.6 x10^3/uL (0.0-1.1) Eosinophils # (Auto) 0.3 x10^3/uL (0.0-0.7) Basophils # (Auto) 0.0 x10^3/uL (0.0-0.2) Sodium Level 138 mmol/L (136-145) Potassium Level 4.4 mmol/L (3.5-5.1) Chloride Level 103 mmol/L (98-107) Carbon Dioxide Level 27 mmol/L (21-32) Anion Gap 8 (6-14) Blood Urea Nitrogen 12 mg/dL (8-26) Creatinine 1.1 mg/dL (0.7-1.3) Estimated GFR (Cockcroft-Gault) 67.2 BUN/Creatinine Ratio 11 (6-20) Glucose Level 131 mg/dL (70-99) Calcium Level 9.1 mg/dL (8.5-10.1) Total Bilirubin 0.8 mg/dL (0.2-1.0) Aspartate Amino Transf (AST/SGOT) 43 U/L (15-37) Alanine Aminotransferase (ALT/SGPT) 66 U/L (16-63) Alkaline Phosphatase 60 U/L (46-116) Total Protein 7.8 g/dL (6.4-8.2) Albumin 3.0 g/dL (3.4-5.0) Albumin/Globulin Ratio 0.6 (1.0-1.7) Glucose (Fingerstick) 153 mg/dL (70-99) 202 mg/dL (70-99) 140 mg/dL (70-99) Laboratory Tests Test 02/25/22 16:50 02/25/22 21:37 02/26/22 08:24 Glucose (Fingerstick) 153 mg/dL (70-99) 202 mg/dL (70-99) 140 mg/dL (70-99) Microbiology 02/19/22 Blood Culture - Final, Complete NO GROWTH AFTER 5 DAYS Medications Current Medications Acetaminophen (Tylenol) 650 mg PRN Q6HRS PRN PO MILD PAIN / TEMP > 100.3'F Last administered on 02/25/22at 22:18; Start 02/19/22 at 14:15 Ondansetron HCl (Zofran) 4 mg PRN Q4HRS PRN IVP NAUSEA/VOMITING; Start 02/19/22 at 14:15 Hydralazine HCl (Apresoline Inj) 10 mg PRN Q4HRS PRN IVP ELEVATED BP, SEE COMMENTS; Start 02/19/22 at 14:15 Atorvastatin Calcium (Lipitor) 5 mg QHS PO Last administered on 02/25/22at 21:14; Start 02/19/22 at 21:00 Insulin Human Lispro (HumaLOG) 0-9 UNITS TIDWMEALS SQ Last administered on 02/24at 12:48; Start 02/19/22 at 17:00 Dextrose (Dextrose 50%-Water Syringe) 12.5 gm PRN Q15MIN PRN IV SEE COMMENTS; Start 02/19/22 at 14:15 Dextrose (Iv Dextrose 5%) 250 ml PRN Q15MIN PRN IV SEE COMMENTS; Start 02/19/22 at 14:15 Vancomycin HCl (Vanco Per Pharmacy) 1 each PRN DAILY PRN MC SEE COMMENTS Last administered on 02/19/22at 18:24; Start 02/19/22 at 14:15; Stop 02/20/22 at 16:13; Status DC Vancomycin HCl 2 gm/Sodium Chloride 500 ml @ 250 mls/hr 1X ONCE IV Last administered on 02/19/22at 17:26; Start 02/19/22 at 15:00; Stop 02/19/22 at 16:59; Status DC Piperacillin Sod/ Tazobactam Sod 3.375 gm/Sodium Chloride 50 ml @ 100 mls/hr Q6HRS IV Last administered on 02/26/22at 05:45; Start 02/19/22 at 14:30 Piperacillin Sod/ Tazobactam Sod (Zosyn Per Pharmacy) 1 each PRN DAILY PRN MC SEE COMMENTS; Start 02/19/22 at 14:15 Sodium Chloride 1,000 ml @ 100 mls/hr Q10H IV Last administered on 02/19/22at 16:09; Start 02/19/22 at 14:15; Stop 02/20/22 at 00:14; Status DC Senna/Docusate Sodium (Senna Plus) 1 tab BID PO Last administered on 02/24/22at 21:00; Start 02/19/22 at 21:00 Fentanyl Citrate (Fentanyl 2ml Vial) 25 mcg PRN Q5MIN PRN IVP MILD PAIN 1-3; Start 02/20/22 at 06:00; Stop 02/20/22 at 16:09; Status DC Fentanyl Citrate (Fentanyl 2ml Vial) 50 mcg PRN Q5MIN PRN IVP MODERATE PAIN 4- 6; Start 02/20/22 at 06:00; Stop 02/20/22 at 16:09; Status DC Morphine Sulfate (Morphine Sulfate) 1 mg PRN Q10MIN PRN IVP SEVERE PAIN 7-10; Start 02/20/22 at 06:00; Stop 02/20/22 at 16:12; Status DC Ringer's Solution 1,000 ml @ 30 mls/hr Q24H IV Last administered on 02/20/22at 09:34; Start 02/20/22 at 06:00; Stop 02/20/22 at 17:59; Status DC Hydromorphone HCl (Dilaudid) 0.5 mg PRN Q10MIN PRN IVP SEVERE PAIN 7-10, 2nd CHOICE; Start 02/20/22 at 06:00; Stop 02/20/22 at 16:12; Status DC Prochlorperazine Edisylate (Compazine) 5 mg PACU PRN PRN IVP NAUSEA, MRX1; Start 02/20/22 at 06:00; Stop 02/20/22 at 16:12; Status DC Insulin Glargine (Lantus Syringe) 25 unit QHS SQ Last administered on 02/23/22at 21:21; Start 02/19/22 at 21:00; Stop 02/24/22 at 12:18; Status DC Vancomycin HCl (Vancomycin Trough Level) 1 each 1X ONCE MC ; Start 02/21/22 at 22:30; Stop 02/20/22 at 16:13; Status DC Vancomycin HCl 2 gm/Sodium Chloride 500 ml @ 250 mls/hr Q18H IV Last administered on 02/20/22at 10:47; Start 02/20/22 at 11:00; Stop 02/20/22 at 12:42; Status DC Propofol (Diprivan) 200 mg STK-MED ONCE IV ; Start 02/20/22 at 08:04; Stop 02/20/22 at 08:04; Status DC Lidocaine HCl (Xylocaine-Mpf 1% 5ml Vial) 5 ml STK-MED ONCE .ROUTE ; Start 01/30 02/19 at 08:04; Stop 02/20/22 at 08:04; Status DC Ondansetron HCl (Zofran) 4 mg STK-MED ONCE .ROUTE ; Start 02/20/22 at 08:04; Stop 02/20/22 at 08:04; Status DC Dexamethasone Sodium Phosphate (Decadron) 4 mg STK-MED ONCE .ROUTE ; Start 02/20/22 at 08:04; Stop 02/20/22 at 08:04; Status DC Fentanyl Citrate (Fentanyl 2ml Vial) 100 mcg STK-MED ONCE .ROUTE ; Start 02/20/22 at 08:58; Stop 02/20/22 at 08:58; Status DC Multivitamins (Thera M Plus) 1 tab DAILY PO Last administered on 02/26/22at 08:29; Start 02/20/22 at 10:00 Ascorbic Acid (Vitamin C) 500 mg DAILY PO Last administered on 02/26/22at 08:29; Start 02/20/22 at 10:00 Famotidine (Pepcid Vial) 20 mg 1X ONCE IVP Last administered on 02/20/22at 09:33; Start 02/20/22 at 09:30; Stop 02/20/22 at 09:31; Status DC Bupivacaine HCl (Sensorcaine Mpf 0.25%) 30 ml STK-MED ONCE .ROUTE Last administered on 02/20/22at 10:42; Start 02/20/22 at 09:34; Stop 02/20/22 at 09:34; Status DC Glycopyrrolate (Robinul) 1 mg STK-MED ONCE .ROUTE ; Start 02/20/22 at 09:57; Stop 02/20/22 at 09:57; Status DC Daptomycin 560 mg/ Sodium Chloride 50 ml @ 100 mls/hr Q24H IV Last administered on 02/25/22at 15:30; Start 02/20/22 at 14:00 Lactobacillus Rhamnosus (Culturelle) 1 cap BID PO Last administered on 02/26/22at 08:29; Start 02/20/22 at 21:00 Heparin Sodium (Porcine) (Heparin Sodium) 5,000 unit Q8HRS SQ Last administered on 02/26/22at 05:50; Start 02/21/22 at 14:00 Fentanyl Citrate (Fentanyl 2ml Vial) 25 mcg PRN Q5MIN PRN IVP MILD PAIN 1-3; Start 02/25/22 at 06:00; Stop 02/26/22 at 05:59; Status DC Fentanyl Citrate (Fentanyl 2ml Vial) 50 mcg PRN Q5MIN PRN IVP MODERATE PAIN 4- 6; Start 02/25/22 at 06:00; Stop 02/26/22 at 05:59; Status DC Morphine Sulfate (Morphine Sulfate) 1 mg PRN Q10MIN PRN IVP SEVERE PAIN 7-10; Start 02/25/22 at 06:00; Stop 02/26/22 at 05:59; Status DC Ringer's Solution 1,000 ml @ 30 mls/hr Q24H IV Last administered on 02/25/22at 12:05; Start 02/25/22 at 06:00; Stop 02/25/22 at 17:59; Status DC Hydromorphone HCl (Dilaudid) 0.5 mg PRN Q10MIN PRN IVP SEVERE PAIN 7-10, 2nd CHOICE; Start 02/25/22 at 06:00; Stop 02/26/22 at 05:59; Status DC Prochlorperazine Edisylate (Compazine) 5 mg PACU PRN PRN IVP NAUSEA, MRX1; Start 02/25/22 at 06:00; Stop 02/26/22 at 05:59; Status DC Naproxen (Naprosyn) 500 mg 1X ONCE PO Last administered on 02/23/22at 23:18; Start 02/23/22 at 23:00; Stop 02/23/22 at 23:01; Status DC Losartan Potassium (Cozaar) 25 mg DAILY PO Last administered on 02/26/22at 08:30; Start 02/24/22 at 13:00 Insulin Glargine (Lantus Syringe) 22 unit QHS SQ Last administered on 02/25/22at 22:14; Start 02/24/22 at 21:00 Citalopram Hydrobromide (CeleXA) 10 mg DAILY PO Last administered on 02/26/22at 08:30; Start 02/24/22 at 13:00 Povidone Iodine (Betadine Oint) 28 [place] STK-MED ONCE TP ; Start 02/25/22 at 11:42; Stop 02/25/22 at 11:42; Status DC Lidocaine HCl (Xylocaine 1% Pf 30ml Vial) 30 ml STK-MED ONCE .ROUTE Last administered on 02/25/22at 13:06; Start 02/25/22 at 11:42; Stop 02/25/22 at 11:42; Status DC Dexamethasone Sodium Phosphate (Decadron) 4 mg STK-MED ONCE .ROUTE ; Start 02/25/22 at 11:42; Stop 02/25/22 at 11:43; Status DC Bupivacaine HCl (Sensorcaine Mpf 0.5%) 30 ml STK-MED ONCE .ROUTE Last administered on 02/25/22at 13:06; Start 02/25/22 at 11:42; Stop 02/25/22 at 11:43; Status DC Lidocaine HCl (Lidocaine Pf 2% Vial) 5 ml STK-MED ONCE .ROUTE ; Start 02/25/22 at 12:22; Stop 02/25/22 at 12:22; Status DC Propofol (Diprivan) 200 mg STK-MED ONCE IV ; Start 02/25/22 at 12:22; Stop 02/25/22 at 12:22; Status DC Fentanyl Citrate (Fentanyl 2ml Vial) 100 mcg STK-MED ONCE .ROUTE ; Start 02/25/22 at 12:22; Stop 02/25/22 at 12:22; Status DC Succinylcholine Chloride (Anectine) 200 mg STK-MED ONCE .ROUTE ; Start 02/25/22 at 12:22; Stop 02/25/22 at 12:22; Status DC Dexamethasone Sodium Phosphate (Decadron) 4 mg STK-MED ONCE .ROUTE ; Start 02/25/22 at 12:22; Stop 02/25/22 at 12:23; Status Cancel Ondansetron HCl (Zofran) 4 mg STK-MED ONCE .ROUTE ; Start 02/25/22 at 12:22; Stop 02/25/22 at 12:23; Status DC Midazolam HCl (Versed) 2 mg STK-MED ONCE .ROUTE ; Start 02/25/22 at 12:52; Stop 02/25/22 at 12:52; Status DC Propofol 50 ml @ As Directed STK-MED ONCE IV ; Start 02/25/22 at 13:03; Stop 02/25/22 at 13:04; Status DC Phenylephrine HCl (PHENYLEPHRINE in 0.9% NACL PF) 1 mg STK-MED ONCE IV ; Start 02/25/22 at 13:11; Stop 02/25/22 at 13:11; Status DC Bupivacaine HCl (Sensorcaine Mpf 0.5%) 30 ml STK-MED ONCE .ROUTE Last administered on 02/25/22at 13:31; Start 02/25/22 at 13:11; Stop 02/25/22 at 13:11; Status DC Gabapentin (Neurontin) 100 mg ONCE ONCE PO ; Start 02/25/22 at 14:00; Stop 02/25/22 at 14:01; Status DC Acetaminophen (Tylenol) 650 mg 1X ONCE PO ; Start 02/25/22 at 14:00; Stop 02/25/22 at 14:01; Status DC Oxycodone/ Acetaminophen (Percocet 5/325) 1 tab 1X ONCE PO ; Start 02/25/22 at 14:00; Stop 02/25/22 at 14:01; Status DC Citalopram Hydrobromide (CeleXA) 10 mg 1X ONCE PO Last administered on 02/25/22at 22:17; Start 02/25/22 at 22:30; Stop 02/25/22 at 22:31; Status DC Active Scripts Active Reported Glyxambi 25 mg-5 mg Tablet (Empagliflozin/Linagliptin) 1 Each Tablet 1 Each PO DAILY Pravastatin Sodium 20 Mg Tablet 20 Mg PO DAILY Losartan-Hctz 50-12.5 Mg Tab (Losartan/Hydrochlorothiazide) 1 Each Tablet 1 Tab PO BID Metformin Hcl 500 Mg Tablet 500 Mg PO BIDWMEALS Levemir (Insulin Detemir) 100 Unit/1 Ml Vial 1 SQ DAILY Vitals/I & O Vital Sign - Last 24 Hours 02/25/22 02/25/22 02/25/22 02/25/22 11:00 12:17 13:52 14:00 Temp 97.4 99.3 97.0 97.4 99.3 97.0 Pulse 66 65 57 Resp 18 17 16 B/P (MAP) 131/60 (83) 123/57 122/60 Pulse Ox 95 97 100 O2 Delivery Room Air Room Air Simple Mask Mask O2 Flow Rate 6.0 6.0 02/25/22 02/25/22 02/25/22 02/25/22 14:08 14:23 14:38 15:00 Temp 97.0 97.0 97.0 97.5 97.0 97.0 97.0 97.5 Pulse 57 59 58 60 Resp 20 22 21 16 B/P (MAP) 124/61 115/58 122/65 138/65 (89) Pulse Ox 100 97 96 99 O2 Delivery Simple Mask Room Air Room Air Room Air O2 Flow Rate 6.0 02/25/22 02/25/22 02/25/22 02/25/22 15:10 15:25 15:40 15:55 Pulse 61 62 65 61 Resp 16 16 16 16 B/P (MAP) 125/72 (89) 137/66 (89) 149/80 (103) 142/84 (103) Pulse Ox 99 92 93 96 O2 Delivery Room Air Room Air Room Air Room Air 02/25/22 02/25/22 02/25/22 02/25/22 16:25 16:55 19:00 19:50 Temp 98.1 98.1 Pulse 61 74 69 Resp 16 16 18 B/P (MAP) 151/83 (105) 115/46 (69) 136/66 (89) Pulse Ox 96 97 96 O2 Delivery Room Air Room Air Room Air Room Air 02/25/22 02/26/22 02/26/22 23:00 03:00 08:30 Temp 97.9 98.5 97.9 98.5 Pulse 64 65 53 Resp 18 18 B/P (MAP) 104/55 (71) 133/83 (100) 118/62 Pulse Ox 96 98 O2 Delivery Room Air Room Air Intake and Output 02/25/22 02/25/22 02/26/22 14:59 22:59 06:59 Intake Total 1025 ml Output Total 10 ml Balance 1015 ml Justifications for Admission Other Justification Failure of outpatient antibiotics NICK CHAUHAN DPM Feb 26, 2022 08:39
[2022-02-26] MEDS ORDERED: LOSA25TA54 PO (10:17)
[2022-02-26] MEDS ORDERED: CITA10TA8 PO (10:17)
[2022-02-26] MEDS ORDERED: INSU100V8 SQ (10:17)
--- NOTE | 2022-02-26 10:21 | SNU/HH DC ---
DISCHARGE WITH HOME HEALTH DISCHARGE INFORMATION: Condition on Discharge: Stable CODE STATUS: Code Status: Full HOME HEALTH: Face to Face: I certify this patient is under my care and that I, or a nurse practitioner or physician's benefits assistant working with me, had a face to face encounter that meets the physician face to face encounter requirements with this patient on []. RN For Eval/Treatment: Yes Physical Therapy For: Evalulation/Treatment Occupational Therapy For: Evaluation/Treatment Home Health Aide For: Self-care TELEPHONE QUOTATION CLERK For: Community Resources Pt Meets Homebound Status: Unsteady balance w/ amb, POST DISCHARGE ORDERS: DIET AFTER DISCHARGE: ADA CERTIFICATION STATEMENT: Certification Statement: Certification Statement: Based on the above finding, I certify that this patient is confined to the home and needs intermittent fdc care, physical therapy and/or speech therapy, or continues to need occupational therapy.~ This patient is under my care, and I have initiated the establishment of the plan of care.~ This patient will be followed by myself or a community physician who will periodically review the plan of care. Home Meds Reported Medications Empagliflozin/Linagliptin (Glyxambi 25 mg-5 mg Tablet) 1 Each Tablet, 1 EACH PO DAILY for dm, TAB 02/19/22 Pravastatin Sodium (PRAVASTATIN SODIUM) 20 Mg Tablet, 20 MG PO DAILY, TAB 05/14/16 Losartan/Hydrochlorothiazide (LOSARTAN-HCTZ 50-12.5 MG TAB) 1 Each Tablet, 1 TAB PO BID, #30 TAB 5 Refills 05/14/16 Metformin Hcl (METFORMIN HCL) 500 Mg Tablet, 500 MG PO BIDWMEALS for ANTI- DIABETIC, TAB 0 Refills 05/14/16 Insulin Detemir (LEVEMIR) 100 Unit/1 Ml Vial, 1 SQ DAILY, VIAL 05/14/16 Discontinued Reported Medications Sitagliptin Phosphate (JANUVIA) 100 Mg Tablet, 1 TAB PO DAILY, #30 TAB 5 Refills 05/14/16 KAYLA SALAZAR III DO Feb 26, 2022 10:20
[2022-02-26] MEDS ORDERED: OXYC-325 PO (10:22)
[2022-02-26] MEDS ORDERED: AMOX1TAB10 PO (10:22)
[2022-02-26] MEDS ORDERED: DOXY100C3 PO (10:22)
[2022-02-26 11:00] VITALS: BP 125/66
--- NOTE | 2022-02-26 12:28 | PDOC ---
Infectious Disease Note Subjective Subjective pt is feeling good ROS ROS no n/v/d/ Vital Sign Vital Signs Vital Signs Date Time Temp Pulse Resp B/P (MAP) Pulse Ox O2 Delivery O2 Flow Rate FiO2 02/26/22 08:30 53 118/62 02/26/22 08:00 Room Air 02/26/22 07:00 98.0 19 97 98.0 02/25/22 14:08 6.0 Physical Exam PHYSICAL EXAM GENERAL: Alert, oriented gentleman, not in distress. VITAL SIGNS: Stable, afebrile. HEENT: NAD. NECK: Supple, no JVP, no lymphadenopathy. LUNGS: Clear. HEART: S1, S2, regular. ABDOMEN: Soft, nontender, no organomegaly. EXTREMITIES: No edema or cyanosis. post surgical dressing not opened NEUROLOGIC: The patient is alert, awake, and appropriate. No focal neurologic deficit. Labs Lab Laboratory Tests Test 02/25/22 16:50 02/25/22 21:37 02/26/22 08:24 02/26/22 12:03 Glucose (Fingerstick) 153 mg/dL (70-99) 202 mg/dL (70-99) 140 mg/dL (70-99) 182 mg/dL (70-99) Micro Microbiology 02/19/22 Blood Culture - Preliminary, Resulted NO GROWTH AFTER 1 DAY Objective Assessment IMPRESSION: 1. Left second toe distal phalanx osteomyelitis. s/p amputation s/p closure 2. Left second toe distal interphalangeal joint infection. 3. Diabetes. 4. Hypertension. 5. Hyperlipidemia. Plan Plan of Care cont antibiotics ,, change to po cont supportive care failure possibility discussed XOCHITL CABALLERO MD Feb 26, 2022 12:28
--- NOTE | 2022-02-26 12:38 | DS ---
DATE OF DISCHARGE: 02/26/2022 ADMITTING DIAGNOSIS: Osteomyelitis of the left second toe. DISCHARGE DIAGNOSES: Postoperative left second digit incision and drainage and delayed primary closure of the left forefoot. CONSULTS: Puneet Monahan MD, Infectious Disease; Celeste Uribe DPM, Podiatry. 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 He presented with osteomyelitis of the second toe on the left. The above consults were obtained. We gave him IV antibiotics. He went for surgery yesterday. Today, I spoke with his production statistical clerk, Dr. Uribe. He is okay with the patient going home on p.o. antibiotics. I spoke with Infectious Disease. They are okay with that too. We plan to send him home with p.o. doxycycline and Augmentin. DISPOSITION: Home. ACTIVITY: As tolerated. DIET: Low sodium. MEDICATIONS: Augmentin 500 mg p.o. b.i.d., citalopram 10 a day, doxycycline 100 b.i.d., insulin 22 units of Lantus at bedtime, losartan 25 a day, p.r.n. oxycodone 5/325, I sent him a prescription for 15 tablets 1 t.i.d. p.r.n. We will continue his Glyxambi 25 mg-5 mg 1 tablet daily, losartan/hydrochlorothiazide 50/12.5 one a day, metformin 500 b.i.d., pravastatin 20 a day. TOTAL TIME: 32 minutes. ABHINAV/BEATRIZ DR: Trae TID: [id number]
[2022-02-26] MEDS: DAPTOmycin (GENERIC) IVPB 560 MG in IV NORMAL SALINE 50ML 50 ML IV SCH (14:00)
[2022-02-26 15:00] VITALS: BP 123/51
[2022-02-26 19:00] VITALS: BP 129/49
[2022-02-26] MEDS: AMOXICILLIN/K CLAV 875/125MG TABLET. PO SCH (20:54)
[2022-02-26] MEDS: DOXYCYCLINE HYCLATE 100 MG TABLET PO SCH (20:55)
[2022-02-26] MEDS: ATORVASTATIN CALCIUM 10 MG TABLET. PO SCH (20:55)
[2022-02-26] MEDS: INSULIN GLARGINE SYRINGE. SQ SCH (21:03)
[2022-02-26] MEDS: diphenhydrAMINE HCL 25 MG CAPSULE PO PRN (21:48)
[2022-02-26 23:14] VITALS: BP 122/54
[2022-02-27 03:00] VITALS: BP 115/62
[2022-02-27] MEDS: HEPARIN for SUB-Q USE 5,000 UNIT/ML VIAL. SQ SCH ×3 (05:54→21:11)
[2022-02-27] MEDS: diphenhydrAMINE HCL 25 MG CAPSULE PO PRN ×2 (06:39→21:40)
[2022-02-27 07:00] VITALS: BP 127/68
[2022-02-27] MEDS: SENNOSIDES/DOCUSATE 8.6/50MG TABLET. PO SCH ×2 (07:11→21:00)
[2022-02-27] MEDS: INSULIN LISPRO 300 UNITS/3 ML VIAL. SQ SCH ×3 (07:49→17:14)
[2022-02-27] MEDS: ASCORBIC ACID 500 MG TABLET PO SCH (07:53)
[2022-02-27] MEDS: LACTOBACILLUS RHAMNOSUS GG 1 CAPSULE. PO SCH ×2 (07:53→21:06)
[2022-02-27] MEDS: AMOXICILLIN/K CLAV 875/125MG TABLET. PO SCH ×2 (07:53→21:40)
[2022-02-27] MEDS: CITALOPRAM 10 MG TABLET. PO SCH (07:53)
[2022-02-27] MEDS: MULTIVITAMIN with MINERAL TABLET. PO SCH (07:54)
[2022-02-27] MEDS: DOXYCYCLINE HYCLATE 100 MG TABLET PO SCH ×2 (07:54→21:00)
[2022-02-27] MEDS: LOSARTAN POTASSIUM 25 MG TABLET. PO SCH (07:54)
--- NOTE | 2022-02-27 10:51 | SNU/HH DC ---
DISCHARGE ORDERS DISCHARGE INFORMATION: CONDITION ON DISCHARGE: Stable CODE STATUS: Code Status: Full CARE HOME: SNF STAY <30 DAYS: No HOSPICE: HOSPICE: No HOSPICE EVAL & TREAT: No LTAC: ADMIT TO LTAC: No POST DISCHARGE ORDERS: DIET AFTER DISCHARGE: ADA OTHER ORDERS: Discharge to [facility] rehab TREATMENT/EQUIPMENT ORDERS: Physical Therapy For: Evalulation/Treatment Occupational Therapy For: Evaluation/Treatment DISCHARGE MEDICATIONS: Home Meds Active Scripts Oxycodone HCl/Acetaminophen (Percocet 5-325 mg Tablet) 1 Each Tablet, 1 TAB PO PRN TID PRN for PAIN MDD 3 Tablet(s) for 5 Days, #15 TAB 0 Refills Prov:CASTLE,NIAL K III DO 02/26/22 Doxycycline Hyclate (DOXYCYCLINE HYCLATE) 100 Mg Capsule, 1 CAP PO BID for ., #14 CAP Prov:CASTLE,NIAL K III DO 02/26/22 Amoxicillin/Potassium Clav (AMOX TR-K CLV 500-125 MG TAB) 1 Each Tablet, 1 TAB PO BID for ., #14 TAB Prov:CASTDENYNIAL K III DO 02/26/22 Insulin Glargine,Hum.rec.anlog (LANTUS) 100 Unit/1 Ml Vial, 22 UNIT SQ QHS for . for 30 Days, #1 EACH Prov:CASTLE,NIAL K III DO 02/26/22 Citalopram Hydrobromide (CELEXA) 10 Mg Tablet, 10 MG PO DAILY for . for 30 Days, #30 TAB Prov:CASTLE,NIAL K III DO 02/26/22 Losartan Potassium (LOSARTAN POTASSIUM ) 25 Mg Tablet, 25 MG PO DAILY for . for 30 Days, #30 TAB Prov:CASTLE,NIAL K III DO 02/26/22 Reported Medications Empagliflozin/Linagliptin (Glyxambi 25 mg-5 mg Tablet) 1 Each Tablet, 1 EACH PO DAILY for dm, TAB 02/19/22 Pravastatin Sodium (PRAVASTATIN SODIUM) 20 Mg Tablet, 20 MG PO DAILY, TAB 05/14/16 Losartan/Hydrochlorothiazide (LOSARTAN-HCTZ 50-12.5 MG TAB) 1 Each Tablet, 1 TAB PO BID, #30 TAB 5 Refills 05/14/16 Metformin Hcl (METFORMIN HCL) 500 Mg Tablet, 500 MG PO BIDWMEALS for ANTI- DIABETIC, TAB 0 Refills 05/14/16 Discontinued Reported Medications Insulin Detemir (LEVEMIR) 100 Unit/1 Ml Vial, 1 SQ DAILY, VIAL 05/14/16 KAYLA SALAZAR III DO Feb 27, 2022 10:51
--- NOTE | 2022-02-27 10:55 | PDOC ---
[facility] PROGRESS NOTE Date of Service DOS: DATE: 02/27/22 TIME: 10:53 Chief Complaint Chief Complaint Postop day 2 repeat incision and drainage, delayed primary closure of the left forefoot Left 2nd toe cellulitis - failed outpatient antibiotic therapy. 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 Will obtain vascular studies HTN - monitor BP, hold HCTZ - losartan lower dose HLD - statin DM2 - hold metformin, cnot the sliding scale and basal insulin - Peripheral vascular disease with duplex showing left CLINICAL SYSTEMS EDUCATOR increased velocities \\depression, celexa, FEN - ADA diet, NPO after midnight PPX - ambulatory, post-op lovenox FULL CODE Dispo - inpatient for above History of Present Illness History of Present Illness 02/27/2022 Patient seen and examined His discharge was held yesterday due to logistical problems (he might need acute rehab instead of home health?) Discussed with case management Discussed with RN Chart reviewed I spoke with the pharmacy and stopped his antibiotics because he has a rash will await further ID input 02/25/2022 Patient seen and examined Discussed with RN Discussed with case management Chart reviewed His left second toe has a wound VAC in place Discussed with pharmacy He currently has IV Zosyn and IV daptomycin 66yo male with PMHx HTN, HLD, DM2 who comes to the hospital as a direct admission from podiatry clinic for failure of outpatient treatment of left leg/foot and 2nd toe cellulitis. He noted left second toe pain swelling and redness with some yellowish discharge and ulcer went to his primary care physician on 02/11/2022 and was started on cefuroxime. He had referral to podiatry and after being seen in the office noted ulcer with osteomyelitis on radiograph and failure to improve despite outpatient antibiotics. Seen bedside does have foul-smelling discharge from left second toe. Cultures were obtained in podiatry office. Given osteomyelitis findings he is being considered for amputation. Prior to admission his diabetes outpatient has been controlled well and his A1c improved from 7.3-7.2 this most recent visit in January 2022. 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 02/20/2022 No acute events overnight. Patient seen examined bedside. On-call to the OR for surgery. Follow-up 02/21/2022 No acute events overnight. Patient seen examined bedside. AF and VSS. Pain is well controlled. Dr. Uribe will be back again this afternoon to reevaluate surgical wound to see if second trip to the OR if needed. Patient's chart, labs, images were reviewed and discussed with RN 02/22/22 No acute events overnight. Pain well controlled. Ambulating without assistance. AF and VSS. Plan for second look in the OR with Dr Uribe. Patient's chart, labs, images were reviewed and discussed with RN 02/23/2022 No acute events overnight. Patient seen examined sitting on recliner. Pain is well controlled. AF and VSS. Moving well on his own. Plan for second look take back to the OR on Friday with Dr. Uribe. Patient's chart, labs, images were reviewed and discussed with RN 02/24, will adjust his insulin down, surg planned for tomorrow, diet hre reviewed, he had a glucose spike yesterdya, "friends" brought him a couple pieces of candy, I asked him to refrain. restart Celexa, home med not listed he asked abotu his HTN meds, not getting, I reviewed outpatient goals for HTN vs hospital and risk of hypotension on admit he is in agreement, blood sugar better controlled on more stringent hospital diet options. Vitals/I&O Vitals/I&O: Vital Signs Date Time Temp Pulse Resp B/P (MAP) Pulse Ox O2 Delivery O2 Flow Rate FiO2 02/27/22 07:54 62 127/68 02/27/22 07:00 97.9 18 95 Room Air 97.9 l I & O 02/26/22 02/26/22 02/27/22 15:00 23:00 07:00 Intake Total 0 ml 300 ml 200 ml Output Total 675 ml 125 ml Balance -675 ml 300 ml 75 ml Physical Exam Physical Exam: GENERAL: Alert, oriented gentleman, not in distress. VITAL SIGNS: Stable, afebrile. HEENT: NAD. NECK: Supple, no JVP, no lymphadenopathy. LUNGS: Clear. HEART: S1, S2, regular. ABDOMEN: Soft, nontender, no organomegaly. EXTREMITIES: No edema or cyanosis. post surgical dressing not opened NEUROLOGIC: The patient is alert, awake, and appropriate. No focal neurologic deficit. General: Alert, Oriented X3, Cooperative, No acute distress Heart: Regular rate Abdomen: Normal bowel sounds, Soft, No tenderness, No hepatosplenomegaly, No masses Extremities: No clubbing, No cyanosis, Normal pulses, Other Skin: Other (Ulcer on 2nd toe left foot) Labs Labs: Laboratory Tests Test 02/26/22 12:03 02/26/22 17:41 02/26/22 20:58 02/26/22 22:15 Glucose (Fingerstick) 182 mg/dL (70-99) 126 mg/dL (70-99) 195 mg/dL (70-99) SARS-CoV-2 Antigen (Rapid) Negative (NEGATIVE) Test 02/27/22 07:39 Glucose (Fingerstick) 145 mg/dL (70-99) Assessment and Plan Assessmemt and Plan Postop day 2 repeat incision and drainage, delayed primary closure of the left forefoot Left 2nd toe cellulitis - failed outpatient antibiotic therapy. 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 Will obtain vascular studies HTN - monitor BP, hold HCTZ - losartan lower dose HLD - statin DM2 - hold metformin, cnot the sliding scale and basal insulin - Peripheral vascular disease with duplex showing left CLINICAL SYSTEMS EDUCATOR increased velocities \\depression, celexa, FEN - ADA diet, NPO after midnight PPX - ambulatory, post-op lovenox FULL CODE Dispo - inpatient for above Plan [facility] rehab eval in progress If he is not excepted there he would need to go home with home health For now continue wound skilled nursing meds DVT prophylaxis full code as needed pain meds Comment Review of Relevant I have reviewed the following items deisi (where applicable) has been applied. Medications: Current Medications Medications (Trade) Dose Ordered Sig/Gamal Route PRN Reason Start Time Stop Time Status Last Admin Dose Admin Amoxicillin/ Clavulanate Potassium (Augmentin 875/ 125mg) 1 tab BID PO 02/26/22 21:00 02/27/22 08:51 DC 02/27/22 07:53 Doxycycline Hyclate (Vibra-Tab) 100 mg BID PO 02/26/22 21:00 02/27/22 08:51 DC 02/27/22 07:54 Diphenhydramine HCl (Benadryl) 25 mg PRN Q6HRS PRN PO ITCHING 02/26/22 21:45 02/27/22 06:39 Justifications for Admission Other Justification Failure of outpatient antibiotics KAYLA SALAZAR III DO Feb 27, 2022 10:55
[2022-02-27 11:00] VITALS: BP 133/65
--- NOTE | 2022-02-27 12:42 | PDOC ---
Infectious Disease Note Subjective Subjective pt is feeling good ROS ROS no n/v/d/ Vital Sign Vital Signs Vital Signs Date Time Temp Pulse Resp B/P (MAP) Pulse Ox O2 Delivery O2 Flow Rate FiO2 02/27/22 11:00 98.3 68 18 133/65 (87) 96 Room Air 98.3 Physical Exam PHYSICAL EXAM GENERAL: Alert, oriented gentleman, not in distress. VITAL SIGNS: Stable, afebrile. HEENT: NAD. NECK: Supple, no JVP, no lymphadenopathy. LUNGS: Clear. HEART: S1, S2, regular. ABDOMEN: Soft, nontender, no organomegaly. EXTREMITIES: No edema or cyanosis. post surgical dressing not opened NEUROLOGIC: The patient is alert, awake, and appropriate. No focal neurologic deficit. Labs Lab Laboratory Tests Test 02/26/22 17:41 02/26/22 20:58 02/26/22 22:15 02/27/22 07:39 Glucose (Fingerstick) 126 mg/dL (70-99) 195 mg/dL (70-99) 145 mg/dL (70-99) SARS-CoV-2 Antigen (Rapid) Negative (NEGATIVE) Test 02/27/22 11:19 Glucose (Fingerstick) 199 mg/dL (70-99) Micro Microbiology 02/19/22 Blood Culture - Preliminary, Resulted NO GROWTH AFTER 1 DAY Objective Assessment IMPRESSION: 1. Left second toe distal phalanx osteomyelitis. s/p amputation s/p closure 2. Left second toe distal interphalangeal joint infection. 3. Diabetes. 4. Hypertension. 5. Hyperlipidemia. Plan Plan of Care cont antibiotics ,, po cont supportive care failure possibility discussed rash only on back probably heat rash XOCHITL CABALLERO MD Feb 27, 2022 12:42
--- NOTE | 2022-02-27 13:38 | NUR ---
Report given to Deysi RIOJAS
[2022-02-27 15:00] VITALS: BP 130/100
[2022-02-27 19:00] VITALS: BP 139/52
[2022-02-27] MEDS: ATORVASTATIN CALCIUM 10 MG TABLET. PO SCH (21:06)
[2022-02-27] MEDS: INSULIN GLARGINE SYRINGE. SQ SCH (21:11)
--- NOTE | 2022-02-27 21:29 | NUR ---
Report rcvd. from SHINE Valero; transfer of patient care at this time.
[2022-02-27] MEDS: HYDROCORTISONE 1% LOTION BOTTLE. TP SCH (21:42)
[2022-02-27 23:00] VITALS: BP 139/67
[2022-02-28 03:00] VITALS: BP 130/68
[2022-02-28] MEDS: HEPARIN for SUB-Q USE 5,000 UNIT/ML VIAL. SQ SCH ×3 (06:00→21:56)
[2022-02-28 07:00] VITALS: BP 113/70
[2022-02-28] MEDS: INSULIN LISPRO 300 UNITS/3 ML VIAL. SQ SCH ×3 (08:00→17:00)
[2022-02-28] MEDS: HYDROCORTISONE 1% LOTION BOTTLE. TP SCH ×3 (08:01→21:53)
[2022-02-28] MEDS: SENNOSIDES/DOCUSATE 8.6/50MG TABLET. PO SCH ×2 (09:00→21:54)
[2022-02-28] MEDS: ASCORBIC ACID 500 MG TABLET PO SCH (09:23)
[2022-02-28] MEDS: LACTOBACILLUS RHAMNOSUS GG 1 CAPSULE. PO SCH ×2 (09:23→21:54)
[2022-02-28] MEDS: CITALOPRAM 10 MG TABLET. PO SCH (09:23)
[2022-02-28] MEDS: diphenhydrAMINE HCL 25 MG CAPSULE PO PRN (09:23)
[2022-02-28] MEDS: AMOXICILLIN/K CLAV 875/125MG TABLET. PO SCH ×2 (09:23→21:54)
[2022-02-28] MEDS: MULTIVITAMIN with MINERAL TABLET. PO SCH (09:24)
[2022-02-28] MEDS: LOSARTAN POTASSIUM 25 MG TABLET. PO SCH (09:25)
--- NOTE | 2022-02-28 09:37 | PDOC ---
[facility] [facility] PROGRESS NOTE Date of Service DOS: DATE: 02/28/22 TIME: 09:34 Chief Complaint Chief Complaint Postop day 2 repeat incision and drainage, delayed primary closure of the left forefoot Left 2nd toe cellulitis - failed outpatient antibiotic therapy. 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 Will obtain vascular studies HTN - monitor BP, hold HCTZ - losartan lower dose HLD - statin DM2 - hold metformin, cnot the sliding scale and basal insulin - Peripheral vascular disease with duplex showing left SHREDDING FLOOR EQUIPMENT OPERATOR increased velocities \\depression, celexa, FEN - ADA diet, NPO after midnight PPX - ambulatory, post-op lovenox FULL CODE Dispo - inpatient for above History of Present Illness History of Present Illness 02/28/2022 Patient seen and examined Dr. Uribe is here present with me Patient has a left posterior slab with clean dry intact dressing covering it on the left lower extremity Discussed with case management Discussed with RN Chart reviewed He has been accepted by [facility] rehab we are awaiting insurance approval 02/27/2022 Patient seen and examined His discharge was held yesterday due to logistical problems (he might need acute rehab instead of home health?) Discussed with case management Discussed with RN Chart reviewed I spoke with the pharmacy and stopped his antibiotics because he has a rash will await further ID input 02/25/2022 Patient seen and examined Discussed with RN Discussed with case management Chart reviewed His left second toe has a wound VAC in place Discussed with pharmacy He currently has IV Zosyn and IV daptomycin 66yo male with PMHx HTN, HLD, DM2 who comes to the hospital as a direct admission from podiatry clinic for failure of outpatient treatment of left leg/foot and 2nd toe cellulitis. He noted left second toe pain swelling and redness with some yellowish discharge and ulcer went to his primary care physician on 02/11/2022 and was started on cefuroxime. He had referral to podiatry and after being seen in the office noted ulcer with osteomyelitis on radiograph and failure to improve despite outpatient antibiotics. Seen bedside does have foul-smelling discharge from left second toe. Cultures were obtained in podiatry office. Given osteomyelitis findings he is being considered for amputation. Prior to admission his diabetes outpatient has been controlled well and his A1c improved from 7.3-7.2 this most recent visit in January 2022. 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 02/20/2022 No acute events overnight. Patient seen examined bedside. On-call to the OR for surgery. Follow-up 02/21/2022 No acute events overnight. Patient seen examined bedside. AF and VSS. Pain is well controlled. Dr. Uribe will be back again this afternoon to reevaluate surgical wound to see if second trip to the OR if needed. Patient's chart, labs, images were reviewed and discussed with RN 02/22/22 No acute events overnight. Pain well controlled. Ambulating without assistance. AF and VSS. Plan for second look in the OR with Dr Uribe. Patient's chart, labs, images were reviewed and discussed with RN 02/23/2022 No acute events overnight. Patient seen examined sitting on recliner. Pain is well controlled. AF and VSS. Moving well on his own. Plan for second look take back to the OR on Friday with Dr. Uribe. Patient's chart, labs, images were reviewed and discussed with RN 02/24, will adjust his insulin down, surg planned for tomorrow, diet hre reviewed, he had a glucose spike yesterdya, "friends" brought him a couple pieces of candy, I asked him to refrain. restart Celexa, home med not listed he asked abotu his HTN meds, not getting, I reviewed outpatient goals for HTN vs hospital and risk of hypotension on admit he is in agreement, blood sugar better controlled on more stringent hospital diet options. Vitals/I&O Vitals/I&O: Vital Signs Date Time Temp Pulse Resp B/P (MAP) Pulse Ox O2 Delivery O2 Flow Rate FiO2 02/28/22 09:25 63 113/70 02/28/22 07:00 98.2 16 97 Room Air 98.2 I & O 02/27/22 02/27/22 02/28/22 15:00 23:00 07:00 Intake Total 780 ml Output Total 700 ml Balance -700 ml 780 ml Physical Exam Physical Exam: GENERAL: Alert, oriented gentleman, not in distress. VITAL SIGNS: Stable, afebrile. HEENT: NAD. NECK: Supple, no JVP, no lymphadenopathy. LUNGS: Clear. HEART: S1, S2, regular. ABDOMEN: Soft, nontender, no organomegaly. EXTREMITIES: No edema or cyanosis. post surgical dressing not opened NEUROLOGIC: The patient is alert, awake, and appropriate. No focal neurologic deficit. General: Alert, Oriented X3, Cooperative, No acute distress Heart: Regular rate Abdomen: Normal bowel sounds, Soft, No tenderness, No hepatosplenomegaly, No masses Extremities: No clubbing, No cyanosis, Normal pulses, Other (Posterior slab with clean dry intact dressing over it on the left lower extremity) Skin: Other (Ulcer on 2nd toe left foot) Labs Labs: Laboratory Tests Test 02/27/22 11:19 02/27/22 16:57 02/27/22 20:42 02/28/22 09:21 Glucose (Fingerstick) 199 mg/dL (70-99) 157 mg/dL (70-99) 183 mg/dL (70-99) 146 mg/dL (70-99) Assessment and Plan Assessmemt and Plan Postop day #3 repeat incision and drainage, delayed primary closure of the left forefoot Left 2nd toe cellulitis - failed outpatient antibiotic therapy. 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 Will obtain vascular studies HTN - monitor BP, hold HCTZ - losartan lower dose HLD - statin DM2 - hold metformin, cnot the sliding scale and basal insulin - Peripheral vascular disease with duplex showing left SHREDDING FLOOR EQUIPMENT OPERATOR increased velocities \\depression, celexa, FEN - ADA diet, NPO after midnight PPX - ambulatory, post-op lovenox FULL CODE Dispo - inpatient for above Plan He has been accepted at [facility] rehab but we are awaiting insurance autho rization For now continue wound skilled nursing meds DVT prophylaxis full code as needed pain meds Appreciate subspecialist input Comment Review of Relevant I have reviewed the following items deisi (where applicable) has been applied. Medications: Current Medications Medications (Trade) Dose Ordered Sig/Gamal Route PRN Reason Start Time Stop Time Status Last Admin Dose Admin Hydrocortisone (Cortizone-10) 1 [place] TID TP 02/27/22 21:00 02/28/22 08:01 Amoxicillin/ Clavulanate Potassium (Augmentin 875/ 125mg) 1 tab BID PO 02/27/22 21:30 03/05/22 09:01 02/28/22 09:23 Justifications for Admission Other Justification Failure of outpatient antibiotics KAYLA SALAZAR III DO Feb 28, 2022 09:37
[2022-02-28 11:00] VITALS: BP 120/80
[2022-02-28] MEDS: DOXYCYCLINE HYCLATE 100 MG TABLET PO SCH ×2 (13:25→21:54)
--- NOTE | 2022-02-28 13:52 | PDOC ---
Infectious Disease Note Subjective Subjective pt is feeling good ROS ROS No nausea vomiting diarrhea chest pain shortness of breath Vital Sign Vital Signs Vital Signs Date Time Temp Pulse Resp B/P (MAP) Pulse Ox O2 Delivery O2 Flow Rate FiO2 02/28/22 11:00 64 18 120/80 (93) 97 Room Air 02/28/22 07:00 98.2 98.2 Physical Exam PHYSICAL EXAM GENERAL: Alert, oriented gentleman, not in distress. VITAL SIGNS: Stable, afebrile. HEENT: NAD. NECK: Supple, no JVP, no lymphadenopathy. LUNGS: Clear. HEART: S1, S2, regular. ABDOMEN: Soft, nontender, no organomegaly. EXTREMITIES: No edema or cyanosis. post surgical dressing not opened NEUROLOGIC: The patient is alert, awake, and appropriate. No focal neurologic deficit. Labs Lab Laboratory Tests Test 02/27/22 16:57 02/27/22 20:42 02/28/22 09:21 02/28/22 12:55 Glucose (Fingerstick) 157 mg/dL (70-99) 183 mg/dL (70-99) 146 mg/dL (70-99) 171 mg/dL (70-99) Micro Microbiology 02/19/22 Blood Culture - Preliminary, Resulted NO GROWTH AFTER 1 DAY Objective Assessment IMPRESSION: 1. Left second toe distal phalanx osteomyelitis. s/p amputation s/p closure 2. Left second toe distal interphalangeal joint infection. 3. Diabetes. 4. Hypertension. 5. Hyperlipidemia. Plan Plan of Care cont antibiotics ,, po cont supportive care failure possibility discussed rash improved XOCHITL CABALLERO MD Feb 28, 2022 13:52
[2022-02-28 15:00] VITALS: BP 122/56
[2022-02-28 19:00] VITALS: BP 129/65
[2022-02-28] MEDS: ATORVASTATIN CALCIUM 10 MG TABLET. PO SCH (21:54)
[2022-02-28] MEDS: INSULIN GLARGINE SYRINGE. SQ SCH (21:57)
[2022-02-28 23:00] VITALS: BP 137/75
[2022-03-01 03:00] VITALS: BP 131/68
[2022-03-01] MEDS: HEPARIN for SUB-Q USE 5,000 UNIT/ML VIAL. SQ SCH (06:16)
[2022-03-01 07:00] VITALS: BP 142/73
[2022-03-01] MEDS: INSULIN LISPRO 300 UNITS/3 ML VIAL. SQ SCH ×2 (08:00→12:04)
[2022-03-01] MEDS: MULTIVITAMIN with MINERAL TABLET. PO SCH (08:25)
[2022-03-01] MEDS: DOXYCYCLINE HYCLATE 100 MG TABLET PO SCH (08:25)
[2022-03-01] MEDS: LACTOBACILLUS RHAMNOSUS GG 1 CAPSULE. PO SCH (08:25)
[2022-03-01] MEDS: ASCORBIC ACID 500 MG TABLET PO SCH (08:25)
[2022-03-01] MEDS: HYDROCORTISONE 1% LOTION BOTTLE. TP SCH (08:26)
[2022-03-01] MEDS: AMOXICILLIN/K CLAV 875/125MG TABLET. PO SCH (08:26)
[2022-03-01] MEDS: CITALOPRAM 10 MG TABLET. PO SCH (08:26)
[2022-03-01] MEDS: LOSARTAN POTASSIUM 25 MG TABLET. PO SCH (08:28)
[2022-03-01] MEDS: SENNOSIDES/DOCUSATE 8.6/50MG TABLET. PO SCH (08:28)
[2022-03-01 11:00] VITALS: BP 127/54
[2022-03-01 15:00] VITALS: BP 116/67
--- NOTE | 2022-03-01 15:41 | SNU/HH DC ---
DISCHARGE WITH HOME HEALTH DISCHARGE INFORMATION: Discharge Date: Mar 01, 2022 Final Diagnosis: Toe osteomyelitis Condition on Discharge: Stable CODE STATUS: Code Status: Full HOME HEALTH: Face to Face: I certify this patient is under my care and that I, or a nurse practitioner or physician's cable splicer assistant working with me, had a face to face encounter that meets the physician face to face encounter requirements with this patient on 03/01/2022. 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 For Eval/Treatment: Yes Physical Therapy For: Evalulation/Treatment Occupational Therapy For: Evaluation/Treatment Pt Meets Homebound Status: Unsteady balance w/ amb, POST DISCHARGE ORDERS: Activity Instructions for Disc: Resume previous activity Weight Bearing Status after Di: Full weight bearing DIET AFTER DISCHARGE: ADA DC TO SNF OTHER: Discharge to [facility] rehab FOLLOW-UP: Additional Instructions: Dr Uribe [facility] [address] [place] [id number] TREATMENT/EQUIPMENT ORDERS: Adaptive Equipment Issued: None CERTIFICATION STATEMENT: Certification Statement: Certification Statement: Based on the above finding, I certify that this patient is confined to the home and needs intermittent fdc care, physical therapy and/or speech therapy, or continues to need occupational therapy.~ This patient is under my care, and I have initiated the establishment of the plan of care.~ This patient will be followed by myself or a community physician who will periodically review the plan of care. Home Meds Active Scripts Oxycodone HCl/Acetaminophen (Percocet 5-325 mg Tablet) 1 Each Tablet, 1 TAB PO PRN TID PRN for PAIN MDD 3 Tablet(s) for 5 Days, #15 TAB 0 Refills Prov:CASTLE,NIAL K III DO 02/26/22 Doxycycline Hyclate (DOXYCYCLINE HYCLATE) 100 Mg Capsule, 1 CAP PO BID for ., #14 CAP Prov:CASTLE,NIAL K III DO 02/26/22 Amoxicillin/Potassium Clav (AMOX TR-K CLV 500-125 MG TAB) 1 Each Tablet, 1 TAB PO BID for ., #14 TAB Prov:CASTLE,NIAL K III DO 02/26/22 Insulin Glargine,Hum.rec.anlog (LANTUS) 100 Unit/1 Ml Vial, 22 UNIT SQ QHS for . for 30 Days, #1 EACH Prov:CASTLE,NIAL K III DO 02/26/22 Citalopram Hydrobromide (CELEXA) 10 Mg Tablet, 10 MG PO DAILY for . for 30 Days, #30 TAB Prov:CASTLE,NIAL K III DO 02/26/22 Losartan Potassium (LOSARTAN POTASSIUM ) 25 Mg Tablet, 25 MG PO DAILY for . for 30 Days, #30 TAB Prov:CASTLE,NIAL K III DO 02/26/22 Reported Medications Empagliflozin/Linagliptin (Glyxambi 25 mg-5 mg Tablet) 1 Each Tablet, 1 EACH PO DAILY for dm, TAB 02/19/22 Pravastatin Sodium (PRAVASTATIN SODIUM) 20 Mg Tablet, 20 MG PO DAILY, TAB 05/14/16 Losartan/Hydrochlorothiazide (LOSARTAN-HCTZ 50-12.5 MG TAB) 1 Each Tablet, 1 TAB PO BID, #30 TAB 5 Refills 05/14/16 Metformin Hcl (METFORMIN HCL) 500 Mg Tablet, 500 MG PO BIDWMEALS for ANTI- DIABETIC, TAB 0 Refills 05/14/16 Discontinued Reported Medications Insulin Detemir (LEVEMIR) 100 Unit/1 Ml Vial, 1 SQ DAILY, VIAL 05/14/16 SYED DIETZ MD Mar 01, 2022 15:40
--- NOTE | 2022-03-01 17:08 | NUR ---
Pt discharged home with home health. Discharge instructions and prescriptions discussed. Pt verbalized understanding. IV removed. Pt packed belongings himself. Assisted to wheelchair and was secured in car with son.
== END 2022-03-01 17:01 | disposition home health service (06) | DRG 617 ==
LOC: 4 NORTH 12:13
PROVIDERS: ADMIT Internal Medicine; ATTEND Internal Medicine
PROC: 5A09357 Assistance with Respiratory Ventilation, Less than 24 Consecutive Hours, Continuous Positive Airway Pressure (ICD-10-PCS; 2022-02-20)
PROC: 0Y6N0ZB Detachment at Left Foot, Partial 2nd Ray, Open Approach (ICD-10-PCS; principal; 2022-02-20 10:15)
PROC: 5A09357 Assistance with Respiratory Ventilation, Less than 24 Consecutive Hours, Continuous Positive Airway Pressure (ICD-10-PCS; 2022-02-23)
PROC: 5A09357 Assistance with Respiratory Ventilation, Less than 24 Consecutive Hours, Continuous Positive Airway Pressure (ICD-10-PCS; 2022-02-24)
PROC: 0J9R0ZZ Drainage of Left Foot Subcutaneous Tissue and Fascia, Open Approach (ICD-10-PCS; 2022-02-25)
PROC: 2W3MX1Z Immobilization of Left Lower Extremity using Splint (ICD-10-PCS; 2022-02-25)
DX: E11.69 Type 2 diabetes mellitus with other specified complication (principal); M86.8X8 Other osteomyelitis, other site; L03.116 Cellulitis of left lower limb; L03.032 Cellulitis of left toe; E11.42 Type 2 diabetes mellitus with diabetic polyneuropathy; E11.51 Type 2 diabetes mellitus with diabetic peripheral angiopathy without gangrene; E11.621 Type 2 diabetes mellitus with foot ulcer; E11.622 Type 2 diabetes mellitus with other skin ulcer; E78.5 Hyperlipidemia, unspecified; F32.A Depression, unspecified; I10 Essential (primary) hypertension; L97.529 Non-pressure chronic ulcer of other part of left foot with unspecified severity; M19.079 Primary osteoarthritis, unspecified ankle and foot; Z82.49 Family history of ischemic heart disease and other diseases of the circulatory system; E66.9 Obesity, unspecified
CPT/HCPCS: 36415; 73630; 80048; 80053; 82550; 82962; 83735; 85025; 85651; 86140; 87040; 87426; 88305; 93926; A4222; A4657; A4930; A6253; A6402; A6449; A6450; J0330; J0878; J1100; J1644; J1815; J2250; J2370; J2405; J2543; J2704; J3010; J3370; J3490; J7030; J7040; J7120; U0003; 97116-GP; 97530-GO; 97535-GO; G0378; Q0163

== ENCOUNTER → 2022-02-19 | Outpatient (CLI) | payer OTHER ==
[~2022-02-19] MED LIST changes: +EMPA1TAB PO
== END ==
LOC: SPEC 12:38
PROVIDERS: ATTEND Podiatrist
DX: L97.529 Non-pressure chronic ulcer of other part of left foot with unspecified severity (principal); M86.172 Other acute osteomyelitis, left ankle and foot
CPT/HCPCS: 87075; 87076; 87077; 87186